=== PATIENT | female | born 1955 | race Caucasian/White ===

== ENCOUNTER 2019-08-28 09:52 | Outpatient (CLI) | payer OTHER, SELFPAY ==
--- NOTE | ~2019-08-28 | MM_ITS ---
EXAMINATION: MM screening kyleigh BI w talisha HISTORY: Screening mammogram TECHNIQUE: Craniocaudal and mediolateral oblique 3-D tomosynthesis images were obtained and synthetic 2-D images were generated. CAD analysis was submitted and interpreted. COMPARISON: 08/29/2018, 08/09/2017, 08/06/2016 bilateral digital screening mammogram examinations BREAST PARENCHYMAL COMPOSITION: There are scattered areas of fibroglandular density. FINDINGS: There is no evidence of suspicious mass, calcification, or architectural distortion to sugg est malignancy in either breast. There has been no suspicious interval change. IMPRESSION: 1. No mammographic evidence of malignancy. 2. Recommend routine screening mammography in one year. BI-RADS Category 1: Negative Reviewed, dictated and finalized at location A. [employer]
--- NOTE | ~2019-08-28 | DEXA_ITS ---
Bone Density Report Name: Janet Jha Age: 64 Sex: Female Ethnicity: White Date of : 1955 Indication: postmenopausal; height loss; asthma or emphysema; hysterectomy; Referring Provider: Cathie Slaughter Study: Bone densitometry was performed. Exam Date: August 28, 2019 Accession number: [id number] Bone Density: Region BMD T-score Z-score Classification AP Spine (L1-L4) 0.945 -0.9 0.8 Normal Femoral Neck (Left) 0.734 -1.0 0.4 Normal Total Hip (Left) 0.977 0.3 1.5 Normal Total Hip Bilateral Avg 0.960 0.2 1.4 Normal Femoral Neck (Right) 0.756 -0.8 0.6 Normal Total Hip (Right) 0.942 0.0 1.2 Normal World Health Organization criteria for BMD impression classify patients as: Normal (T-score at or above -1.0), Osteopenia (T-score between -1.0 and -2.5), or Osteoporosis (T-score at or below -2.5). 10-year Fracture Risk: FRAX not reported because: All T-scores for Spine Total, Hip Total, Femoral Neck at or above -1.0 Clinical Information Provided by Patient: Has used the following medications: Vitamin D Has the following medical conditions: Asthma or Emphysema, Hysterectomy Patient maximum height was 65 Menopause Age: 54 No regular weight bearing exercise Does not regularly consume dairy products Onset of menses at age 12 Number of children 1 Impression: The patient has normal bone mass. Discussion: BONE DENSITY IS ABOVE THE MINIMUM DESIRABLE LEVEL AT ALL SKELETAL SITES TESTED. This patient?s bone mineral density is above the minimum desirable level (T-score -1.0 or better) at all sites measured. The patient should follow a healthful lifestyle (good nutrition with adequate calcium and vitamin D, and appropriate weight-bearing exercise). Follow-Up: Consider repeating this study in 5 years or sooner if there is some new clinical indication. Reported by: JS on 08/28/2019 10:24:00 AM. Reviewed, dictated and finalized at location ASandy SNEED
== END 2019-08-28 09:53 | disposition home or self-care (01) ==
LOC: ANHIMG 09:53
PROVIDERS: PCP Internal Medicine; Visit Provider Nurse Practitioner
DX: Z78.0 Asymptomatic menopausal state (principal); Z12.31 Encounter for screening mammogram for malignant neoplasm of breast
CPT/HCPCS: 77063; 77067; 77080

== ENCOUNTER 2020-11-01 14:45 | Outpatient (CLI) | payer MEDICARE, MEDICAID, SELFPAY ==
--- NOTE | ~2020-11-01 | MM_ITS ---
EXAMINATION: MM screening kyleigh BI w talisha HISTORY: Screening mammogram, family history of breast cancer in her mother. TECHNIQUE: Craniocaudal and mediolateral oblique 3-D tomosynthesis images were obtained and synthetic 2-D images were generated. CAD analysis was submitted and interpreted. COMPARISON: 08/28/2019, 08/29/2018, 08/09/2017 BREAST PARENCHYMAL COMPOSITION: The breasts are heterogeneously dense, which may obscure small masses . FINDINGS: There is no evidence of suspicious mass, calcification, or architectural distortion to sugg est malignancy in either breast. There has been no suspicious interval change. IMPRESSION: 1. No mammographic evidence of malignancy. 2. Recommend routine screening mammography in one year. BI-RADS Category 1: Negative Reviewed, dictated and finalized at location A.
[2020-11-01 16:06] LABS: Alanine Aminotransferase 24 U/L (4-35); Albumin Level 4.5 g/dL (3.5-5.1); Alkaline Phosphatase 122 U/L (38-126); Anion Gap 6 mmol/L (8-16); Aspartate Amino Transferase 37 U/L (14-36); Bilirubin,Total 0.2 mg/dL (0.2-1.3); Blood Urea Nitrogen 19 mg/dL (7-17); Calcium 8.8 mg/dL (8.4-10.2); Carbon Dioxide 31 mmol/L (22-30); Chloride 101 mmol/L (98-107); Cholesterol 190 mg/dL (0-200); Estimated Glomerular Filt Rate > 60; Glucose 131 mg/dL (65-105); HDL Direct 38 mg/dL; Potassium 3.8 mmol/L (3.4-5.0); Sodium 138 mmol/L (137-145); Triglycerides 416 mg/dL (<150)
[2020-11-01 16:17] LABS: LDL Cholesterol Direct 65 mg/dL
== END 2020-11-01 14:46 | disposition home or self-care (01) ==
PROVIDERS: PCP Internal Medicine
DX: Z12.31 Encounter for screening mammogram for malignant neoplasm of breast (principal); E78.5 Hyperlipidemia, unspecified; Z79.899 Other long term (current) drug therapy
CPT/HCPCS: 36415; 77063; 77067; 80053; 80061; 82306

== ENCOUNTER → 2020-11-12 06:35 | Outpatient (CLI) | payer MEDICARE, MEDICAID, SELFPAY ==
[2020-11-12 19:16] LABS: SARS-CoV-2 RNA PCR Negative
== END ==
PROVIDERS: PCP Internal Medicine; Visit Provider Internal Medicine Gastroenterology
DX: Z01.812 Encounter for preprocedural laboratory examination (principal); Z20.822 Contact with and (suspected) exposure to COVID-19
CPT/HCPCS: C9803; U0003; U0005

== ENCOUNTER 2020-11-16 01:36 | Day surgery (SDC) | payer MEDICARE, MEDICAID, SELFPAY ==
[2020-11-08 08:48] VITALS: BMI 31.6
[2020-11-16 12:25] VITALS: BP 156/97; PULSE 89; RESP 16; TEMP 36.8; O2SAT 97; BMI 31.4
--- NOTE | 2020-11-16 12:31 | WPDANESEPPF ---
Anes - Initial Pre Proc Eval Procedure: Operation Date: 11/16/20 13:30 Proposed Procedures p Screening Colonoscopy - Deni Loco DO Date/Time: 11/16/20 12:31 Surgeon: Deni Loco DO Pre Op Diagnosis: hx of colon polyps Patient Data Age: 65 Gender: F Height: 5 ft 5 in Weight: 85.6 kg Last Vital Signs Temp 36.8 C 11/16/20 12:25 Pulse 89 11/16/20 12:25 Resp 16 11/16/20 12:25 BP 156/97 H 11/16/20 12:25 Pulse Ox 97 11/16/20 12:25 Allergies Allergy/AdvReac Type Severity Reaction Status Date / Time No Known Allergies Allergy Verified 11/16/20 12:24 Home Medications Medication Instructions Recorded Confirmed Type albuterol sulfate 90 mcg/actuation 1 puff INHALATION Q4H PRN #8.5 gm 01/05/20 11/08/20 Rx aerosol inhaler ergocalciferol (vitamin D2) 1,250 1,250 mcg PO WEEKLY #8 cap 02/08/20 11/08/20 Rx mcg (50,000 unit) capsule fluticasone 113 mcg-salmeterol 14 1 inh INHALATION BID #1 each 04/15/20 11/08/20 Rx mcg/actuation breath activated powdr triamterene 37.5 See Rx Instructions .ROUTE 04/15/20 11/08/20 Rx mg-hydrochlorothiazide 25 mg .COMPLEX #90 each capsule atorvastatin 10 mg tablet 10 mg PO DAILY #90 tablet 07/20/20 11/08/20 Rx oxybutynin chloride 5 mg tablet See Rx Instructions .ROUTE 07/20/20 11/08/20 Rx .COMPLEX #180 ea potassium chloride 10 mEq 10 meq PO DAILY #90 tablet 07/20/20 11/08/20 Rx tablet,extended release sertraline 100 mg tablet 100 mg PO DAILY #90 tablet 07/20/20 11/08/20 Rx sumatriptan succinate 100 mg tablet See Rx Instructions .ROUTE 07/20/20 11/08/20 Rx .COMPLEX #27 ea suvorexant 15 mg tablet 15 mg PO .QHS PRN #30 tablet 07/20/20 11/08/20 Rx Patient hx anesthesia problems: none Family hx anesthesia problems: none PMFSH Past Medical History Medical History Asthma Attention-deficit hyperactivity disorder, unspecified type Bipolar II disorder Essential (primary) hypertension Hyperlipidemia, unspecified Recurrent major depression Restless leg syndrome Surgical History Surgical History S/P JW-BSO Family History Family History Father Family history of alcoholism Family history of throat cancer Patient's father is Mother Family history of malignant neoplasm of breast in first degree relative Family history of malignant neoplasm of breast Social History Social History Smoking status: Former smoker Alcohol intake: never Substance use type: does not use Living arrangements: with family Gender identity (if verbalized by the patient): Female Spiritual care concerns: No Anes - Eval Final PreProcedure Day of Procedure 11/16/20 12:31 Patient weight: obese Heart: regular rate and rhythm Lungs: clear to auscultation Airway: Mallampati scale class II Neurological: alert and oriented Last oral intake: >/= 8 hours ASA classification: III Emergent: no Anesthetic plan: proceed Anesthesia type and monitoring: general GIVS and standard monitoring Informed Consent: The patient's anesthetic plan and its attendant risks and benefits were discussed with the patient/family/POA. Questions were solicited and answers provided to the satisfaction of the patient/family/POA.
[2020-11-16] MEDS: LACTATED RINGERS 1,000 ML 150 ML IV CONT (12:36)
--- NOTE | 2020-11-16 13:49 | WPDGICN ---
GI Consult Note Consult date/time: 11/16/20 13:49 HPI: Reason for visit is colonoscopy. This very pleasant lady seen in consultation request the primary physician. Impression: He a very pleasant lady with left lower quadrant abdominal pain. Evaluate for underlying inflammatory neoplastic disease. She has a history of hyperplastic colon polyps. HTN. HLD. Migraine cephalgia. Recommendation: Colonoscopy. History: This very pleasant lady has a history of left lower quadrant abdominal pain for the last 2 months. The pain is cramping and burning in nature. Would initially come and go but now is to more constant. It is unaffected by eating or defecation. Fever, chills, night sweats or weight loss tonight. She reports occasional diarrhea but denies any hematochezia, melena or acholic stools. She reports mucus per rectum. Pain is unrelieved by defecation. Nausea, vomiting he, hematemesis, dysphagia, odynophagia, indigestion or heartburn at night. She is here for colonoscopy to assess for lying inflammatory neoplastic disease. Previous colonoscopy has revealed hyperplastic colon polyps. Physical examination: General: very pleasant patient in no acute distress. HEENT: Head was normocephalic sclerae is clear mouth without masses neck was supple. Heart: Rate rhythm regular without S3 or S4. Lungs: CTA. Abdomen: Soft with no guarding or rigidity. Bowel sounds were active. Neurologic: Cranial nerves 2 through 12 intact. No focal defects. No clonus. Musculoskeletal system: Revealed no joint tenderness or swelling no muscle atrophy. Extremities: Reveal no significant edema. Skin: Warm and dry with normal turgor. Mental status: intact. Patient is alert and oriented. Review of Systems Review of Systems: All systems reviewed & are unremarkable except as noted in HPI and below PMFSH Past Medical History Medical History Asthma Attention-deficit hyperactivity disorder, unspecified type Bipolar II disorder Essential (primary) hypertension Hyperlipidemia, unspecified Recurrent major depression Restless leg syndrome Surgical History Surgical History S/P JW-BSO Family History Family History Father Family history of alcoholism Family history of throat cancer Patient's father is Mother Family history of malignant neoplasm of breast in first degree relative Family history of malignant neoplasm of breast Social History Social History Smoking status: Former smoker Alcohol intake: never Substance use type: does not use Living arrangements: with family Gender identity (if verbalized by the patient): Female Spiritual care concerns: No Meds Home Medications and Allergies Home Medications Medication Instructions Recorded Confirmed Type albuterol sulfate 90 mcg/actuation 1 puff INHALATION Q4H PRN #8.5 gm 01/05/20 11/08/20 Rx aerosol inhaler ergocalciferol (vitamin D2) 1,250 1,250 mcg PO WEEKLY #8 cap 02/08/20 11/08/20 Rx mcg (50,000 unit) capsule fluticasone 113 mcg-salmeterol 14 1 inh INHALATION BID #1 each 04/15/20 11/08/20 Rx mcg/actuation breath activated powdr triamterene 37.5 See Rx Instructions .ROUTE 04/15/20 11/08/20 Rx mg-hydrochlorothiazide 25 mg .COMPLEX #90 each capsule atorvastatin 10 mg tablet 10 mg PO DAILY #90 tablet 07/20/20 11/08/20 Rx oxybutynin chloride 5 mg tablet See Rx Instructions .ROUTE 07/20/20 11/08/20 Rx .COMPLEX #180 ea potassium chloride 10 mEq 10 meq PO DAILY #90 tablet 07/20/20 11/08/20 Rx tablet,extended release sertraline 100 mg tablet 100 mg PO DAILY #90 tablet 07/20/20 11/08/20 Rx sumatriptan succinate 100 mg tablet See Rx Instructions .ROUTE 07/20/20 11/08/20 Rx .COMPLEX #27
[2020-11-16 14:22] VITALS: BP 144/74; PULSE 68; RESP 24; O2SAT 99
[2020-11-16 14:32] VITALS: BP 133/98; PULSE 71; RESP 22; O2SAT 98
[2020-11-16 14:42] VITALS: BP 144/88; PULSE 70; RESP 20; O2SAT 98
== END 2020-11-16 14:55 | disposition home or self-care (01) ==
PROVIDERS: PCP Internal Medicine; Visit Provider Internal Medicine Gastroenterology
PROC: 0DJD8ZZ Inspection of Lower Intestinal Tract, Via Natural or Artificial Opening Endoscopic (ICD-10-PCS; CPT 45378; principal; 2020-11-16 13:30)
DX: R10.32 Left lower quadrant pain (principal); K64.8 Other hemorrhoids; Z86.010 Personal history of colon polyps; I10 Essential (primary) hypertension; E78.5 Hyperlipidemia, unspecified; F90.9 Attention-deficit hyperactivity disorder, unspecified type; F31.9 Bipolar disorder, unspecified; G25.81 Restless legs syndrome; Z87.891 Personal history of nicotine dependence; Z79.51 Long term (current) use of inhaled steroids
CPT/HCPCS: 45378; J2001; J2704; J7120

== ENCOUNTER 2020-11-30 16:40 | Emergency (ER) | payer MEDICARE, MEDICAID, SELFPAY ==
[2020-11-30] VITALS (18 sets, daily range): BP systolic 146–182; BP diastolic 71–98; PULSE 76–91; RESP 10–21; TEMP 36.8–36.9; O2SAT 95–99
--- NOTE | ~2020-11-30 | CT_ITS ---
EXAMINATION: CT abdomen pelvis w con INDICATION: Left lower quadrant pain TECHNIQUE: Computed tomographic images of the abdomen and pelvis were obtained after the administrati on of 100 cc of Omnipaque 350 intravenous contrast. The dose-length product (DLP) was 801.20 mGy-cm. Automated exposure control and iterative reconstruction technique were employed. COMPARISON: None available FINDINGS: Minimal dependent atelectasis is present in the lung bases. The heart size is normal. The l iver, spleen, pancreas, gallbladder, and adrenal glands are normal. Cysts of the kidneys measure up t o 2.1 cm on the right. No pathologically enlarged abdominal or pelvic lymph nodes are identified. The re is no free intraperitoneal gas or evidence of bowel obstruction. The appendix is normal. There is a tiny fat-containing umbilical hernia. Mild lumbar spondylosis is noted. IMPRESSION: 1. No CT correlate for the patient's symptoms. Reviewed, dictated and finalized at location A.
--- NOTE | ~2020-11-30 | XR_ITS ---
EXAMINATION: XR chest 1V portable INDICATION: Sternal chest pain and chest tightness, shortness of breath TECHNIQUE: Portable AP chest at 1703 hours COMPARISON: 11/27/2018 FINDINGS: There are minimal opacities of the lung bases. There is no pleural effusion or pneumothorax . The cardiomediastinal silhouette is normal. IMPRESSION: 1. Minimal bibasilar airspace opacities, likely atelectasis. Reviewed, dictated and finalized at location A.
--- NOTE | 2020-11-30 16:54 | ECG_ITS ---
Measurements Intervals [place] Rate: 87 P: 40 DE: 162 QRS: -12 QRSD: 93 T: 10 QT: 362 QTc: 437 Interpretive Statements SINUS RHYTHM LOW QRS VOLTAGE IN PRECORDIAL LEADS VOLTAGE CRITERIA FOR LVH BORDERLINE ST-T WAVE ABNORMALITY- DIFFUSE LEADS BASELINE ARTIFACT- II, III, AVF BORDERLINE ECG Electronically Signed On 11-30-2020 19:58:54 CDT by Too Sam D.O.
--- NOTE | 2020-11-30 16:55 | ED.CHESTPAIN ---
HPI - Chest Pain General Chief Complaint: Chest Pain Stated Complaint: chest pain Time Seen by Provider: 11/30/20 16:42 Source: RN notes reviewed History of Present Illness HPI narrative: Patient presents to emergency department from home for chest pain. Patient states she is having bilateral anterior chest pain for the past 1 week. states the pain has been constant and never resides. Patient notes occasional radiation into the back states is associated with a feeling shortness of breath also notes some abdominal pain she denies any fevers or chills vomiting diarrhea or any other symptoms states she took no pain medication for the symptoms today pain is described as a pressure across the chest patient states that she has been having issues with left lower quadrant pain for several months and has a history of her left ovary being removed. She states she is had a colonoscopy and a [employer] exam that were both normal and is scheduled to get a CT scan of abdomen pelvis Related Data Home Medications Medication Instructions Recorded Confirmed dicyclomine mg 11/30/20 Allergies Allergy/AdvReac Type Severity Reaction Status Date / Time No Known Allergies Allergy Verified 11/30/20 16:59 Review of Systems Review of Systems: Narrative: Gen.: Denies fevers or chills Eyes: Denies eye pain or visual change ENT: Denies congestion Respiratory: Reports shortness of breath denies cough CV: See HPI GI: Reports abdominal pain. Denies nausea vomiting or diarrhea denies burning, urgency, frequency or hematuria Musculoskeletal: Denies back pain or muscle pain Neuro: Denies numbness, tingling, weakness or focal weakness Skin: Denies rash Except as documented, all other systems reviewed and negative PMFSH Past Medical History Medical History Asthma Attention-deficit hyperactivity disorder, unspecified type Bipolar II disorder Essential (primary) hypertension Hyperlipidemia, unspecified Recurrent major depression Restless leg syndrome Surgical History Surgical History S/P JW-BSO Family History Family History Father Family history of alcoholism Family history of throat cancer Patient's father is Mother Family history of malignant neoplasm of breast in first degree relative Family history of malignant neoplasm of breast Social History Social History Smoking status: Former smoker Alcohol intake: never Substance use type: does not use Gender identity (if verbalized by the patient): Female Spiritual care concerns: No Exam Narrative: Exam Narrative: APPEARANCE: No acute distress, nontoxic, resting in bed HEENT: Normocephalic, atraumatic, OMM RESPIRATORY: No respiratory distress, clear to auscultation bilaterally with no rhonchi wheezing or rales CARDIOVASCULAR: RRR s murmur ABDOMINAL: Soft nondistended, tender to palpation in left upper quadrant and epigastric region and left lower quadrant no tenderness tenderness in right upper quadrant and right lower quadrant rebound or guarding Extremity: Moves all extremities, no clubbing cyanosis or edema extremity NEURO: Awake and alert. Following commands, speech normal, no focal deficits SKIN:: Warm, dry. Normal Color PSYCHIATRIC: Normal affect/mood Course Course Emergency Course: Patient notes some improvement of pain with Toradol and resolution of pain with GI cocktail Patient's abdomen is soft without significant pain or signs of surgical abdomen on serial exams. Lab and x-ray evaluations are reviewed and patient is felt to be a reasonable candidate for outpatient management. Patient was instructed as to limitations of x-ray and laboratory evaluation and encouraged to return to ED or primary physician for repeat exam in 12 hours if continued
[2020-11-30 17:16] LABS: Basophils Percent Auto 0.2 % (0.2-1.2); Eosinophils Absolute Auto 0.1 K/mm3 (0-0.3); Eosinophils Percent Auto 0.8 % (0-4.4); Hematocrit 35.3 % (37.0-47.0); Hemoglobin 12.1 g/dL (12.0-15.0); Immature Granulocyte Absolute 0.04 K/mm3 (0.00-0.031); Immature Granulocyte Percent A 0.4 % (0-0.5); Lymphocytes Percent Auto 28.7 % (18.3-44.2); Mean Corpuscular HGB Conc 34.3 g/dl (32-36); Mean Corpuscular Hemoglobin 29.7 pg (26-34); Mean Corpuscular Volume 86.7 fl (80-100); Mean Platelet Volume 9.9 fl (7.4-10.4); Monocytes Absolute Auto 0.6 K/mm3 (0.1-0.6); Monocytes Percent Auto 5.7 % (2.6-8.5); Neutrophils Absolute Auto 6.5 K/mm3 (1.3-6.7); Neutrophils Percent Auto 64.2 % (45.5-73.1); Platelet Count Result 233 k/mm3 (150-375); Red Blood Count 4.07 M/mm3 (4.2-5.4); Red Cell Distribution Width 13.2 % (11.5-14.5); White Blood Count 10.1 K/mm3 (4.5-10.0)
[2020-11-30 17:30] LABS: INR 0.9; Prothrombin Time 13.2 Seconds (11.1-14.7)
[2020-11-30 17:31] LABS: Partial Thromboplastin Time 29.7 SECONDS (22.3-36.8)
[2020-11-30 17:32] LABS: Albumin Level 4.2 g/dL (3.5-5.1); Alkaline Phosphatase 125 U/L (38-126); Aspartate Amino Transferase 58 U/L (14-36); Bilirubin,Total 0.4 mg/dL (0.2-1.3); Lipase 43 U/L (23-300)
[2020-11-30 17:38] LABS: Troponin I < 0.012 ng/mL (0.000-0.034)
[2020-11-30 17:51] LABS: Alanine Aminotransferase 27 U/L (4-35)
[2020-11-30] MEDS: KETOROLAC 30 MG/ML VIAL (*BKC) IV PUSH (17:56)
[2020-11-30 18:21] LABS: D Dimer 0.27 ug/mL (<0.48)
[2020-11-30 18:48] LABS: Estimated CRCL calculation 65 ml/min; Estimated Glomerular Filt Rate > 60
[2020-11-30 20:33] LABS: Troponin I < 0.012 ng/mL (0.000-0.034)
[2020-11-30] MEDS: FAMOTIDINE 20 MG/2 ML VIAL IV PUSH (21:50)
== END 2020-11-30 21:55 | disposition home or self-care (01) ==
PROVIDERS: Emergency Provider Emergency Medicine; PCP Internal Medicine
DX: K21.9 Gastro-esophageal reflux disease without esophagitis (principal); R07.9 Chest pain, unspecified; R10.13 Epigastric pain; R10.12 Left upper quadrant pain; Z87.891 Personal history of nicotine dependence
CPT/HCPCS: 36415; 71045; 74177; 80076; 83690; 84484; 85025; 85380; 85610; 85730; 93005; 96374; 96375; 99284; A9270; J1885; Q9967

== ENCOUNTER 2020-12-09 06:54 | Outpatient (CLI) | payer MEDICARE, MEDICAID, SELFPAY ==
--- NOTE | ~2020-12-09 | CT_ITS ---
EXAMINATION: CT abdomen pelvis w con DATE: 12/09/2020 07:41 INDICATION: Left lower quadrant abdominal pain. TECHNIQUE: Computed tomography (CT) of the abdomen and pelvis was performed with 100 mL Omnipaque 350 intravenous contrast. Automated exposure control and iterative reconstruction technique were employe d. The dose-length product was 1122.60 mGy-cm. COMPARISON: CT abdomen and pelvis 11/30/2020 FINDINGS: The visualized portions of the lung bases demonstrate minimal atelectasis. No pleural effus ion. The heart size is normal. No pericardial effusion. The liver, gallbladder, spleen, pancreas, and adrenal glands are normal. There are cysts in the kidneys measuring up to 2.1 cm on the right. There is diverticulosis of the colon without evidence of diverticulitis. There are no dilated loops of bow el. The appendix is normal. There are no pathologically enlarged lymph nodes. There is no free intrap eritoneal fluid. There are chronic bilateral L5 pars defects without spondylolisthesis. There is mild lumbar spondylosis. IMPRESSION: 1. No etiology for the patient's symptoms. Reviewed, dictated and finalized at location A.
== END 2020-12-09 06:55 | disposition home or self-care (01) ==
PROVIDERS: PCP Internal Medicine; Visit Provider Physician Assistant Medical
DX: R10.32 Left lower quadrant pain (principal)
CPT/HCPCS: 74177; Q9967

== ENCOUNTER 2021-02-09 10:37 | Emergency (ER) | payer MEDICARE, MEDICAID, SELFPAY ==
--- NOTE | ~2021-02-09 | XR_ITS ---
XR shoulder RT min 2V, XR humerus RT 02/09/2021 11:29 (accession [id number]), 02/09/2021 11:30 (accession [id number]) Indication: Right shoulder pain after trauma Procedure: 2 views right shoulder and 2 views right humerus Comparison: No prior studies for comparison. Findings: There is a comminuted displaced right humeral neck fracture with valgus angulation. Glenohu meral joint intact. Surrounding osseous structures within normal limits. No significant soft tissue a bnormality. Impression: 1: Comminuted mildly displaced right humeral neck fracture with valgus angulation. Reviewed, dictated and finalized at location A. Impression: 1: Comminuted mildly displaced right humeral neck fracture with valgus angulati on. Impression: 1: Comminuted mildly displaced right humeral neck fracture with valgus angulati on.
[2021-02-09 10:47] VITALS: BP 164/85; PULSE 89; RESP 18; TEMP 36.7; O2SAT 98
--- NOTE | 2021-02-09 11:02 | ED.UPPEXIN ---
HPI - Extremity Injury (Upper) General Chief Complaint: Extremity Injury, Upper Stated Complaint: right arm injury Time Seen by Provider: 02/09/21 11:30 Source: patient and RN notes reviewed Mode of arrival: ambulatory Limitations: no limitations History of Present Illness HPI narrative: 65-year-old female presents with concern for right arm injury. Reports on Saturday she slipped and fell on her hardwood floor at home. Reports since then she has had shoulder and upper arm pain. She reports she has been guarding the shoulder, holding it close to her torso, has been unable to change her shirt due to the pain in her arm. She reports she has been taking ibuprofen several times daily with little relief. She denies any decreased sensation or strength in her distal arm. MD complaint: injury to: right, shoulder and arm Related Data Allergies Allergy/AdvReac Type Severity Reaction Status Date / Time No Known Allergies Allergy Verified 01/19/21 13:40 Review of Systems Review of Systems: CONSTITUTIONAL: Denies malaise, chills, sweats, or fever. CARDIOVASCULAR: Denies chest pain, palpitations, or edema. RESPIRATORY: Denies cough or dyspnea. SKIN: Lacerations, abrasions, bruising, redness MUSCULOSKELETAL: Reports right shoulder pain. NEUROLOGIC: Denies numbness, weakness. All systems reviewed & are unremarkable except as noted in HPI and below PMFSH Past Medical History Medical History Asthma Attention-deficit hyperactivity disorder, unspecified type Bipolar II disorder Essential (primary) hypertension Hyperlipidemia, unspecified Recurrent major depression Restless leg syndrome Surgical History Surgical History S/P JW-BSO Family History Family History Father Family history of alcoholism Family history of throat cancer Patient's father is Mother Family history of malignant neoplasm of breast in first degree relative Family history of malignant neoplasm of breast Social History Social History (Updated 01/19/21 @ 13:44 by Paris Orozco MA) Smoking packs per day: 0.15 Smoking cigarettes per day: 3.0 Years smoked: 2 Smoking pack-years: 0.30 Smoking status: Former smoker Alcohol intake: never Substance use type: does not use Gender identity (if verbalized by the patient): Female Spiritual care concerns: No Comments At time of signature, agree with nursing past medical, surgical, social and family history. There is no relevant family history pertinent to the presenting complaint Exam Narrative: GENERAL: Well-appearing, well-nourished, and in no acute distress. HEAD: Normocephalic, atraumatic. EYES: PERRLA, conjunctivae clear NECK: Supple. CHEST: Speaks in full sentences. No respiratory distress. HEART: Regular rate and rhythm. Normal and equal peripheral pulses. EXTREMITIES: Right shoulder, upper arm have normal sensation, limited range of motion. No edema or ecchymosis. Normal sensation with sensitivity to light touch and pain. Proximal humeral tenderness. No open wounds, no skin tenting, no devitalized tissue or atrophy, no trophic changes, no obvious deformity, alignment normal, nearby joints and structures intact. Distal pulses palpable and equal bilaterally, skin warm, dry, pink. Capillary refill less than 3 seconds. SKIN: Warm, dry, no rash. NEURO: Alert and oriented x3. PSYCH: Normal mood and affect Course Course Emergency Course: Patient is aware of diagnosis, understands and agrees to treatment plan. Anticipatory guidance given. Patient agrees to follow-up as directed and is aware of reasons to seek care at the emergency department. Portions of this record may have been created with voice recognition software Vital Signs Vital signs: Vital Signs Temperature 98.1 F 02/09/21 10:47 Pulse Rate 89
[2021-02-09] MEDS: KETOROLAC (*BKC) 60 MG/2 ML VIAL IM (11:42)
== END 2021-02-09 12:07 | disposition home or self-care (01) ==
PROVIDERS: Emergency Provider Nurse Practitioner; PCP Internal Medicine
DX: S42.211A Unspecified displaced fracture of surgical neck of right humerus, initial encounter for closed fracture (principal); W01.0XXA Fall on same level from slipping, tripping and stumbling without subsequent striking against object, initial encounter; J45.909 Unspecified asthma, uncomplicated; I10 Essential (primary) hypertension; E78.5 Hyperlipidemia, unspecified; G25.81 Restless legs syndrome; F33.9 Major depressive disorder, recurrent, unspecified
CPT/HCPCS: 73030; 73060; 96372; 99214; A4565; G0463; J1885

== ENCOUNTER 2021-03-13 16:41 | Outpatient (CLI) | payer MEDICARE, MEDICAID, SELFPAY ==
[2021-03-13 18:15] LABS: Vitamin D 25 Hydroxy 31.8 ng/mL
== END 2021-03-13 16:42 | disposition home or self-care (01) ==
PROVIDERS: PCP Internal Medicine; Visit Provider Orthopaedic Surgery
DX: E55.9 Vitamin D deficiency, unspecified (principal)
CPT/HCPCS: 36415; 82306

== ENCOUNTER 2022-01-26 14:34 | Outpatient (CLI) | payer MEDICARE, MEDICAID, SELFPAY ==
--- NOTE | ~2022-01-26 | DEXA_ITS ---
Bone Density Report Name: GABE MCDANIELS Age: 66 Sex: Female Ethnicity: White Date of : 1955 Indication: postmenopausal; screening for osteoporosis; height loss; hysterectomy; Referring Provider: IAM ROMERO Study: Bone densitometry was performed. Exam Date: January 26, 2022 Accession number: [id number] Bone Density: Region BMD T-score Z-score Classification AP Spine(L1-L4) 1.005 -0.4 1.5 Normal Femoral Neck (Left) 0.737 -1.0 0.6 Normal Total Hip (Left) 0.930 -0.1 1.2 Normal Femoral Neck (Right) 0.765 -0.8 0.8 Normal Total Hip (Right) 0.973 0.3 1.6 Normal Total Hip Mean 0.951 0.1 1.4 Normal World Health Organization criteria for BMD impression classify patients as: Normal (T-score at or above -1.0), Osteopenia (T-score between -1.0 and -2.5), or Osteoporosis (T-score at or below -2.5). 10-year Fracture Risk: FRAX not reported because: All T-scores for Spine Total, Hip Total, Femoral Neck at or above -1.0 Clinical Information Provided by Patient: Has used the following medications: Vitamin D, Calcium Has the following medical conditions: Hysterectomy Patient maximum height was 65 Menopause Age: 54 Onset of menses at age 11 Number of children 1 Impression: UNAPPROVED The patient has normal bone mass. Discussion: UNAPPROVED BONE DENSITY IS ABOVE THE MINIMUM DESIRABLE LEVEL AT ALL SKELETAL SITES TESTED. This patient?s bone mineral density is above the minimum desirable level (T-score -1.0 or better) at all sites measured. The patient should follow a healthful lifestyle (good nutrition with adequate calcium and vitamin D, and appropriate weight-bearing exercise). Follow-Up: UNAPPROVED Consider repeating this study in 5 years or sooner if there is some new clinical indication. Reported by: DORINDA on 01/26/2022 3:02:00 PM. Reviewed, dictated and finalized at location ASandy SNEED
--- NOTE | ~2022-01-26 | MM_ITS ---
EXAMINATION: MM screening kyleigh BI w talisha HISTORY: Screening mammogram, family history of breast cancer in her mother. TECHNIQUE: Craniocaudal and mediolateral oblique 3-D tomosynthesis images were obtained and synthetic 2-D images were generated. CAD analysis was submitted and interpreted. COMPARISON: 11/01/2020, 08/28/2019, 08/29/2018 BREAST PARENCHYMAL COMPOSITION: The breasts are heterogeneously dense, which may obscure small masses . FINDINGS: There is no suspicious mass, calcification, or architectural distortion to suggest malignan cy in either breast. There has been no suspicious interval change. IMPRESSION: 1. No mammographic evidence of malignancy. 2. Recommend routine screening mammography in one year. BI-RADS Category 1: Negative Reviewed, dictated and finalized at location A.
== END 2022-01-26 14:35 | disposition home or self-care (01) ==
PROVIDERS: PCP Orthopaedic Surgery
DX: Z12.31 Encounter for screening mammogram for malignant neoplasm of breast (principal); Z78.0 Asymptomatic menopausal state
CPT/HCPCS: 77063; 77067; 77080

== ENCOUNTER 2023-09-03 15:53 | Emergency (ER) | payer MEDICARE, MEDICAID, SELFPAY ==
--- NOTE | ~2023-09-03 | XR_ITS ---
EXAMINATION: XR chest 2V DATE: 09/03/2023 16:56 INDICATION: Cough. Right lung crackles. TECHNIQUE: Frontal and lateral views of the chest were obtained. COMPARISON: Chest single view 11/30/2020, CT abdomen and pelvis 12/09/2020 FINDINGS: There is mild atelectasis at left lung base. No pleural effusion or pneumothorax. The heart size is normal. IMPRESSION: 1. Mild atelectasis at left lung base. Reviewed, dictated and finalized at location E. 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
[2023-09-03 16:18] VITALS: BP 187/88; BP 189/101; PULSE 90; RESP 20; TEMP 36.9; O2SAT 100
--- NOTE | 2023-09-03 18:04 | ED.URI ---
HPI - URI/Sore Throat General Chief Complaint: Upper Respiratory Infection Stated Complaint: can't breathe/chest tight Time Seen by Provider: 09/03/23 18:04 Source: patient, RN notes reviewed and old records reviewed Mode of arrival: ambulatory Limitations: no limitations History of Present Illness HPI Narrative: 68 year old female who presents to [facility] care with complaints of cough, shortness of breath and some upper chest heaviness. Patient reports that she has had cough since June, reports that she has asthma. Patient called her physician in [facility] and he prescribed Augmentin for her but she hasn't taken any doses says it makes her sick. Patient report that she took some DayQuil 2 days ago. Patient denies any fevers chills or sweats or any body aches. MD elicited complaint: cough and other (shortness of breath, upper chest heaviness) Pertinent past history: asthma Onset (ago): day(s) (cough 3 months, chest heaviness few days) Pain scale (0-10): 8 Able to tolerate fluids by mouth: Yes Exacerbating factors: exertion Treatments prior to arrival: other (DayQuil 2 days ago) Related Data Home Medications Medication Instructions Recorded Confirmed omeprazole 40 mg capsule,delayed 40 mg PO DAILY 02/06/22 09/03/23 release alprazolam 0.25 mg tablet 0.25 mg PO DAILY 09/03/23 09/03/23 gabapentin 100 mg capsule 100 mg PO TID 09/03/23 09/03/23 naproxen 500 mg tablet 500 mg PO BID 09/03/23 09/03/23 potassium chloride 20 mEq 20 meq PO DAILY 09/03/23 09/03/23 tablet,extended release(part/cryst) pravastatin 10 mg tablet 10 mg PO DAILY 09/03/23 09/03/23 semaglutide 0.25 mg or 0.5 mg (2 0.5 mg subcut WEEKLY 09/03/23 09/03/23 mg/3 mL) subcutaneous pen injector (Ozempic) sertraline 50 mg tablet 50 mg PO DAILY 09/03/23 09/03/23 triamterene 37.5 1 cap PO DAILY 09/03/23 09/03/23 mg-hydrochlorothiazide 25 mg capsule Allergies Allergy/AdvReac Type Severity Reaction Status Date / Time No Known Allergies Allergy Verified 09/03/23 16:49 Review of Systems Review of Systems: CONSTITUTIONAL: Denies malaise, chills, sweats, or fever. EYES: Denies visual changes, redness, or discharge. ENT: Reports rhinorrhea, congestion, no sinus pain,no otalgia and no sore throat. CARDIOVASCULAR: Denies chest pain, palpitations, or edema.states upper chest heaviness RESPIRATORY: Reports cough.? Reports some dyspnea. GASTROINTESTINAL: Denies abdominal pain, nausea, vomiting, diarrhea SKIN: Denies rash or itching. MUSCULOSKELETAL: Denies myalgia. NEUROLOGIC: Denies headache. All systems reviewed & are unremarkable except as noted in HPI and below PMFSH Past Medical History Medical History Asthma Attention-deficit hyperactivity disorder, unspecified type Bipolar II disorder Essential (primary) hypertension Hyperlipidemia, unspecified Recurrent major depression Restless leg syndrome Surgical History Surgical History S/P JW-[id number] Family History Family History Father Family history of alcoholism Family history of throat cancer Patient's father is Mother Family history of malignant neoplasm of breast in first degree relative Family history of malignant neoplasm of breast Social History Social History (Updated 09/05/23 @ 12:35 by Bre Guzman NP) Smoking packs per day: 0.15 Smoking cigarettes per day: 3.0 Years smoked: 2 Smoking pack-years: 0.30 Smoking status: Former smoker Second hand tobacco smoke exposure: Yes Smoking end date: 07/15/75 Alcohol intake: never Substance use type: does not use Living arrangements: with family Gender identity (if verbalized by the patient): Female Spiritual care concerns: No Comments At time of signature, agree with nursing past medical, surgical, social and family hi
== END 2023-09-03 18:25 | disposition home or self-care (01) ==
PROVIDERS: Emergency Provider Registered Nurse
DX: J06.9 Acute upper respiratory infection, unspecified (principal); R05.1 Acute cough; Z87.891 Personal history of nicotine dependence; J45.909 Unspecified asthma, uncomplicated; I10 Essential (primary) hypertension; E78.5 Hyperlipidemia, unspecified; G25.81 Restless legs syndrome
CPT/HCPCS: 71046; 99213; G0463

== ENCOUNTER 2025-07-02 14:03 | Outpatient (CLI) | payer MEDICARE, MEDICAID, SELFPAY ==
--- NOTE | ~2025-07-02 | MM_ITS ---
EXAMINATION: MM screening kyleigh BI w talisha HISTORY: Screening TECHNIQUE: Craniocaudal and mediolateral oblique 3-D tomosynthesis images were obtained and synthetic 2-D images were generated. CAD analysis was submitted and interpreted. COMPARISON: Comparison to multiple prior studies sequentially, with oldest reviewed study dated , 08/09/2017 BREAST PARENCHYMAL COMPOSITION: Dense: The breasts are heterogeneously dense, which may obscure small masses. FINDINGS: There is no evidence of suspicious mass, calcification, or architectural distortion to suggest malignancy in either breast. IMPRESSION: 1. No mammographic evidence of malignancy. 2. Recommend routine screening mammography in one year. BI-RADS Category 1: Negative Reviewed, dictated and finalized at location A. EN SETTLING TENDER
--- OUTSIDE RECORDS SUMMARY | 2025-07-02 14:08 | XMS_ITS | Patient Health Record ---
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 Name Role Phone Nisha Henley APRN Primary Care Provider [employer], [facility] Unavailable U navailable Allergies Allergen (clinical drug ingredient) Drug/Non Drug Allergy documented on EMR Reaction Allergy Type Onset Date Status Sertraline HCl muscle cramps Drug Allergy Active Reason For Referral No Information Medications Medication SIG (Take, Route, Frequency, Duration) Notes Start Date End Date Diagnosis (ICD Code) Status busPIRone HCl 15 MG Tablet 1 tablet Orally three times daily; Duration: 30 days 10/18/2016 Anxiety (ICD_1 0 - F41.9) Active Social History Sex Observation Social History Observation Description Sex Observation Female Social History Primary Social History Social Info Question Answer Notes Living Arrangement Living Arrangement: Independent Hilda ing Is this a supportive environment? Yes Tobacco Use - do not use Tobacco Use: Never Employment Status Employment Status: Unemployed Illicit Substance Usage Illicit Substance Usage: No Alcohol Use Alcohol Use Frequency: Never Problems Problem Type SNOMED Code ICD Code Dates Problem Status W/U Status Risk Notes Problem Anxiety (51384007) Anxiety (F41.9) Added On:10/19/19 17 Active confirmed Problem Obese class I (finding) (101178044818 107) Obesity (BMI 30.0-34.9) (E66.9) Added On:10/19/19 17 Active confirmed Plan Of Treatment No Information Insurance Providers Payer Name Payer Address Payer Phone Subscriber Number Group Number Insured Name Patient Relationship to Insured Coverage Start Date Coverage End Date [facility] Attn Claims Department [address] [place] [address] [phone] [id number] Janet Jha Self - patient is the insured 6 Medical (General) History Medical History History ICD Code Obesity Anxiety Surgical History Surgery Date(Month/Year) hysterectomy 2011
--- OUTSIDE RECORDS SUMMARY | 2025-07-02 14:08 | XMS_ITS | Clinical Summary ---
Author Organization [address] Address [facility] [place] [address] Care Team Providers Care Cryptographic Vulnerability Analyst Name Role Phone Sj Seymour MD Primary Care Provider [phone] Taye Burns MD Unavailable [phone] Allergies Active Allergy Reactions Criticality Noted Date Comments Hydroxyzine Dizziness Low 05/01/2022 Rosuvastatin Muscle pain Medium 05/01/2022 Atorvastatin Muscle pain Medium 05/01/2022 Sertraline Hcl Muscle pain Medium 01/06/2025 Ptezwaj-Lwe-Tnm Reductase Inhibitors Muscle pain Medium 05/11/2021 Medications fluticasone propionate (FLONASE) 50 mcg/actuation nasal spray Administer 1 spray into each nostril daily as needed for allergies 01/28/20 23 Active lancets miscIndications:C ontrolled type 2 diabetes mellitus without complication, without long-term current use of insulin Use as directed to test blood sugar daily before breakfast. 100 each 11 10/06/19 25 Active blood glucose diagnostic (glucose blood) stripIndications: Controlled type 2 diabetes mellitus without complication, without long-term current use of insulin Test blood sugar every day before breakfast. May also test 2 hours after largest meal as directed. 100 each 10/06/19 25 Active blood-glucose meter miscIndications:C ontrolled type 2 diabetes mellitus without complication, without long-term current use of insulin Use daily or as directed for monitoring of diabetes. 1 each 10/06/19 25 Active pen needle, diabetic 31 gauge x 3/16 needleIndications :Type 2 diabetes mellitus with stage 2 chronic kidney disease, without long-term current use of insulin ([facility]) Use to inject Ozempic once weekly. 30 each 1 11/20/19 25 Active ezetimibe (ZETIA) 10 mg tablet Take 1 tablet (10 mg total) by mouth every morning Active linaCLOtide (LINZESS) 145 mcg capsule Take 1 capsule (145 mcg total) by mouth every morning Active fluticasone furoate-vilantero L (BREO ELLIPTA) 100-25 mcg/dose diskus inhaler Inhale 1 puff nightly Rinse mouth with water after use. Do not swallow. Active cyanocobalamin (Vitamin B-12) 500 mcg tabletIndications :Prevention of Vitamin B12 Deficiency Take 1 tablet (500 mcg total) by mouth every morning Unsure of dose Active HYDROcodone-aceta minophen (NORCO) 5-325 mg per tabletIndications :Pain Take 1-2 tablets by mouth every 4 (four) hours as needed for pain 30 tablet 12/19/19 25 Active albuterol HFA (PROVENTIL HFA,VENTOLIN HFA,PROAIR HFA) 90 mcg/actuation inhaler Inhale 2 puffs every 6 (six) hours as needed for wheezing 1 each 03/09/20 25 Active clopidogreL (PLAVIX) 75 mg tablet Take 1 tablet (75 mg total) by mouth daily 30 tablet 03/19/20 25 2025 Active aspirin 81 mg enteric coated tablet Take 1 tablet (81 mg total) by mouth daily 30 tablet 11 03/19/20 25 2025 Active losartan (COZAAR) 25 mg tablet TAKE 1 TABLET(25 MG) BY MOUTH DAILY 100 tablet 04/04/20 25 Active nortriptyline (PAMELOR) 25 mg capsule Take 1 capsule (25 mg total) by mouth daily 04/11/20 25 Active alirocumab 75 mg/mL pen injector Inject 1 Pen under the skin every 14 (fourteen) days 1 mL 3 04/21/20 25 2025 Active potassium chloride ER (KLOR-CON) 10 mEq CR tabletIndications :Hypertension associated with diabetes (HCC),Hypokalemia Take 2 tablet/capsul e (20 mEq total) by mouth 2 (two) times a day 180 tablet 4 04/26/20 25 2025 Active sertraline (ZOLOFT) 50 mg tabletIndications :Generalized anxiety disorder with panic attacks Take 1 tablet (50 mg total) by mouth daily 90 tablet 4 04/26/20 25 2025 Active ALPRAZolam (XANAX) 0.25 mg tabletIndications :Generalized anxiety disorder with panic attacks Take 1 tablet (0.25 mg total) by mouth daily as needed for anxiety 90 tablet 04/26/20 Active ondansetron ODT (ZOFRAN-ODT) 4 mg disintegrating tabletIndications :Type 2 diabetes mellitus with stage 2 chronic kidney disease, without long-term current use of insulin (HCC),Calculus of gallbladder without cholecystitis without obstruction DISSOLVE 1 TABLET(4 MG) ON THE TONGUE EVERY 8 HOURS NEEDED FOR NAUSEA OR VOMITING 20 tablet 11 05/12/20 Active omeprazole (PriLOSEC) 40 mg capsule TAKE 1 CAPSULE(40 MG) BY MOUTH DAILY 90 capsule 1 05/12/20 Active semaglutide (Ozempic) 0.25 mg or 0.5 mg (2 mg/3 mL) pen injector injection INJECT 0.5 MG UNDER THE SKIN EVERY 7 DAYS 9 mL 3 05/17/20 Active gabapentin (NEURONTIN) 100 mg capsuleIndication s:Interstitial Cystitis Take 2 capsules (200 mg total) by mouth nightly 60 capsule 1 05/20/20 25 2025 Active dicyclomine (BENTYL) 10 mg capsule TAKE 1 CAPSULE(10 MG) BY MOUTH FOUR TIMES DAILY NEEDED FOR ABDOMINAL PAIN 90 capsule 2 05/31/20 Active SUMAtriptan (IMITREX) 50 mg tablet TAKE 1 TABLET BY MOUTH NEEDED FOR MIGRAINE, MAY REPEAT 2 HOURS LATER IF PERSISTENT HEADACHE. NOT TO EXCEED 4 TABLETS PER DAY OR 9 DAYS/ MONTH 9 tablet 11 06/09/20 Active SUMAtriptan (IMITREX) 50 mg tabletIndications :Migraine Take 1 tablet (50 mg total) by mouth once as needed for migraine May repeat dose once in 2 hours if no relief. Do not exceed 2 doses in 24 hours. 2024 Discontinued Active Problems Problem Noted Date Diagnosed Date Coronary artery disease invo lving pilot point coronary artery of pilot point heart without angina pectoris 04/21/2025 Assessment & Plan (04/21/2025 3:40 PM CDT): PCI to mid LAD, diease in the prox mid LCX negative by IFR, known severe lesion in distal posterolateral branch, treating medically due to small-vessel, tortuous Denies anginal symptoms Continue DAPT Planning on starting cardiac rehab Abnormal computed tomography angiography (CTA) 0 02/10/2025 Abnormal nuclear cardiac imaging test 02/10/2025 Chronic cholecystitis 12/04/2024 Constipation 11/18/2024 Assessment & Plan (11/19/2024 8:21 AM CDT): Acute on chronic. Possible exacerbation of patient's irritable bowel syndrome but given her age more serious etiology including malignancy can not be ruled out. Further evaluation is warranted and colonoscopy has been ordered. Patient also needs relief while evaluation proceeds and given she has failed domh-nld-[id number] agents prescription for Linzess sent to pharmacy. Change in bowel habits 11/18/2024 Assessment & Plan (11/19/2024 8:17 AM CDT): New worsening of chronic constipation not responding to previous therapies. This may represent an exacerbation of her irritable bowel syndrome but given patient's age a change in bowel habits warrants further evaluation for malignancy. Colonoscopy ordered. Recurrent major depressive disorder, in partial remission 09/25/2023 Assessment & Plan (04/01/2024 5:30 PM CDT): Chronic, stable. Continue Lexapro with benefit. Assessment & Plan (09/25/2023 12:02 PM CDT): Chronic, controlled on sertraline but with intolerable side effects. Will switch to Lexapro. Interstitial cystitis 03/22/2023 Assessment & Plan (04/01/2024 5:30 PM CDT): Chronic. Keep upcoming appointment with Urology. We will check urinalysis to assess whether current urinary symptoms are due to UTI versus UC flare. She has seen benefit from gabapentin to UC but given intolerable side effects was advised to discuss alternatives with Urology. Assessment & Plan (03/22/2023 12:18 PM CDT): Chronic. Continue as needed naproxen and gabapentin. Continue to follow with urology. Hypokalemia 11/13/2022 Assessment & Plan (04/26/2025 2:10 PM CDT): Intermittent, recurrent. Continue potassium supplementation. Patient states she can swallow the 10 mEq tablets without issue so prescription for this dose was sent. Assessment & Plan (04/01/2024 5:30 PM CDT): Chronic, secondary to thiazide diuretic use. Continue potassium supplementation. Assessment & Plan (11/13/2022 1:35 PM CDT): In the setting of diuretic use. Follow-up BMP today. Tentatively plan to continue potassium 20 mEq daily. Urinary frequency 11/13/2022 Assessment & Plan (11/13/2022 1:36 PM CDT): Chronic. Differential diagnosis includes recurrent UTI verses overactive bladder verses pelvic floor dysfunction verses interstitial cystitis. Referral to Urology placed for further evaluation. If symptoms of UTI occur in the interim I would plan for UA before starting any antibiotics. Gastroesophageal reflux disease 11/13/2022 Assessment & Plan (04/01/2024 5:28 PM CDT): Chronic, effectively treated with omeprazole. Continue current therapy. Assessment & Plan (11/13/2022 1:36 PM CDT): Chronic, effectively treated with omeprazole. Continue current therapy. Encounter for Medicare annual wellness exam 11/2022 Assessment & Plan (04/01/2024 5:28 PM CDT): Patient here for annual Medicare wellness visit and for review of complete medical problem list. I reviewed Medicare Wellness Questionnaire. I reviewed and updated the complete problem list, medication list, family history, and immunization records with the patient. I provided preventive counseling and early detection interventions to the patient through health maintenance update and summary of today's office visit. Assessment & Plan (09/16/2022 5:42 PM PRESETTER OPERATOR): -labs today -advise q 6 month dental exam -advise annual derm check -advise annual eye exam -advise regular exercise 3-5 times a week for 30 minutes -advise annual mammogram, interverval appropriate colon cancer screening and dexa scans -advise covid vaccine and booster, advise shingles -advise obgyn -advise flu shot Statin intolerance 05/01/2022 Assessment & Plan (09/16/2022 5:39 PM PRESETTER OPERATOR): Following with cardiology, able to tolerate low dose statin, will check lipids Hypertension associated with diabetes 03/15/2022 Assessment & Plan (04/26/2025 2:10 PM CDT): Chronic, stable, controlled. Continue losartan. Assessment & Plan (04/01/2024 5:30 PM CDT): Chronic, stable, not fully controlled. Optimal blood pressure is less than 130/80. We discussed the possibility of increasing her triamterene hydrochlorothiazide but I am concerned it could cause more significant hypokalemia. Therefore will continue triamterene HCTZ with potassium unchanged and add losartan 25 mg. This has the added benefit of nephro protection in diabetes. Assessment & Plan (09/25/2023 12:09 PM CDT): Chronic, well controlled on triamterene HCTZ. Continue current therapy as well as supplemental potassium. Assessment & Plan (11/13/2022 1:35 PM CDT): Chronic, well controlled on triamterene HCTZ. Continue current therapy as well as supplemental potassium. Irritable bowel syndrome wit h both constipation and diarrhea 08/01/2021 Type 2 diabetes mellitus with chronic kidney dis ease 08/01/2021 Overview (11/19/2024 8:19 AM CDT): >>OVERVIEW FOR CONTROLLED TYPE 2 DIABETES MELLITUS WITHOUT COMPLICATION, WITHOUT LONG-TERM CURRENT USE OF INSULIN (HCC) WRITTEN ON 08/01/2021 1:11 PM BY MILE MCGILL MD A1c 6.6 on recent labs, new diagnosis Assessment & Plan (04/26/2025 2:10 PM CDT): Chronic, stable, controlled. Continue Ozempic as well as losartan. Intolerant to statin therapy. Continue aspirin. A1c today. Assessment & Plan (11/19/2024 8:20 AM CDT): Chronic, stable, controlled. Continue Ozempic as well as losartan. Intolerant to statin therapy. Pen needles for Ozempic ordered. Assessment & Plan (11/19/2024 8:19 AM CDT): >>ASSESSMENT AND PLAN FOR CONTROLLED TYPE 2 DIABETES MELLITUS WITHOUT COMPLICATION, WITHOUT LONG-TERM CURRENT USE OF INSULIN (HCC) WRITTEN ON 10/30/2021 11:57 AM BY ROMAN RUIZ NP Newly diagnosed in July Encourage low carbohydrate diet and increased physical activity Labs ordered Assessment & Plan (11/19/2024 8:19 AM CDT): >>ASSESSMENT AND PLAN FOR CONTROLLED TYPE 2 DIABETES MELLITUS WITHOUT COMPLICATION, WITHOUT LONG-TERM CURRENT USE OF INSULIN (HCC) WRITTEN ON 03/15/2022 2:17 PM BY EMILIA ROSEN MD Will check hba1c Advise annual eye exam, foot check nutrition -will recheck. Not currently on medication Assessment & Plan (11/19/2024 8:19 AM CDT): >>ASSESSMENT AND PLAN FOR CONTROLLED TYPE 2 DIABETES MELLITUS WITHOUT COMPLICATION, WITHOUT LONG-TERM CURRENT USE OF INSULIN (HCC) WRITTEN ON 11/13/2022 1:35 PM BY SJ SEYMOUR MD Chronic, effectively treated with Ozempic. Continue current therapy. Assessment & Plan (11/19/2024 8:19 AM CDT): >>ASSESSMENT AND PLAN FOR CONTROLLED TYPE 2 DIABETES MELLITUS WITHOUT COMPLICATION, WITHOUT LONG-TERM CURRENT USE OF INSULIN (HCC) WRITTEN ON 03/22/2023 12:12 PM BY SJ SEYMOUR MD Chronic, stable, effectively treated with Ozempic. Continue current therapy. A1c today. Assessment & Plan (11/19/2024 8:19 AM CDT): >>ASSESSMENT AND PLAN FOR CONTROLLED TYPE 2 DIABETES MELLITUS WITHOUT COMPLICATION, WITHOUT LONG-TERM CURRENT USE OF INSULIN (HCC) WRITTEN ON 09/25/2023 12:06 PM BY SJ SEYMOUR MD Chronic, stable, effectively treated with Ozempic. Continue current therapy. Labs today. Assessment & Plan (11/19/2024 8:19 AM CDT): >>ASSESSMENT AND PLAN FOR CONTROLLED TYPE 2 DIABETES MELLITUS WITHOUT COMPLICATION, WITHOUT LONG-TERM CURRENT USE OF INSULIN (HCC) WRITTEN ON 04/01/2024 5:28 PM BY SJ SEYMOUR MD Chronic, stable, well controlled. Labs today. Continue Ozempic. Migraine without aura and wi thout status migrainosus, not intractable 07/26/2021 Assessment & Plan (04/01/2024 5:30 PM CDT): Chronic, effectively treated with as needed sumatriptan. Continue current therapy. Assessment & Plan (11/13/2022 1:34 PM CDT): Chronic, effectively treated with as needed sumatriptan. Continue current therapy. Generalized anxiety disorder with panic attacks 04/11/2021 Assessment & Plan (04/26/2025 2:09 PM CDT): Chronic, not well controlled. Would like to resume sertraline which she thinks worked better than escitalopram. Will switch to sertraline 50 mg. Higher dose likely recommended but patient favors a low dose of SSRI. Reviewed that we can continue Xanax, and that it is ok to take twice daily when needed, but that the expectation is that a quantity of 90 pills should still last 90 days, as she should not be taking Xanax on a daily or multiple times per day basis. Discussed that if she finds her need for Xanax has increased to that point then we need to look at increasing her sertraline or adding another agent like buspirone. Assessment & Plan (11/19/2024 8:19 AM CDT): Chronic, stable, controlled. Continue Lexapro and as needed alprazolam with benefit. Assessment & Plan (04/01/2024 5:28 PM CDT): Chronic, stable, controlled. Continue Lexapro and as needed alprazolam with benefit. Assessment & Plan (09/25/2023 12:02 PM CDT): Chronic, controlled on sertraline but with intolerable side effects. Will switch to Lexapro and continue as needed alprazolam. Assessment & Plan (11/13/2022 1:34 PM CDT): Chronic, reasonably well controlled with sertraline and alprazolam. Continue current therapy. Assessment & Plan (03/15/2022 2:16 PM CDT): Takes 1/2 tab of 0.25 mg zanax prn several times a week. Will try to wean off of this and onto hydrozixine -also would like to try daily ssri. Will start zoloft -counseling advised, though pt may defer for now -RTC in 4 weeks for f/u Assessment & Plan (10/30/2021 12:00 PM CDT): On effexor xr 75 mg daily and xanax 0.25 mg PRN Was advised counseling in July and goal to taper off xanax which was last filled in Feburary Assessment & Plan (05/11/2021 12:29 PM CDT): Improving; will increase effexor to 150mg daily. Goal is to further reduce use of xanax PRN for panic attacks/sleep. Assessment & Plan (04/11/2021 11:50 AM CDT): Trial Effexor 75mg daily and titrate up slowly. Xanax 0.25mg as needed for panic attacks sent in for only short time period. Medication side effects including fall risk reviewed in detail. F/u 4-6 weeks for recheck. Cholelithiasis 09/24/2013 Overview (10/19/2016): Cholelithiasis Assessment & Plan (11/19/2024 8:18 AM CDT): Chronic. Patient encouraged to proceed with cholecystectomy as recommended. We discussed that while having some trepidation about surgery is understandable she is also impacted by ongoing symptoms associated with her gallbladder on a daily basis affecting quality of life. Continue Zofran as needed. Menopausal symptom 01/17/2012 Overview (10/19/2016): Menopausal symptoms Hyperlipidemia 01/17/2012 Overview (10/19/2016): Hyperlipidemia Assessment & Plan (04/21/2025 1:20 PM CDT): Intolerant to statins, including rosuvastatin and atorvastatin due to onset of myalgias LDL elevated, 134 per labs in September of 2024 Continue Zetia We will plan to start PCSK9i, Praulent, repeat FLP in 3 months Assessment & Plan (04/01/2024 5:29 PM CDT): Chronic, intolerant to statin therapy. Will start Zetia and recheck a lipid panel in 3 months. If lipid levels have not improved considerably then would look to add a PCSK9 inhibitor. Patient is in agreement with this plan and understands the possibility of a medication addition this winter. Assessment & Plan (11/13/2022 1:34 PM CDT): Chronic, doing well on [id number] dosing of pravastatin 10 mg. Continue current therapy. Assessment & Plan (03/15/2022 2:15 PM CDT): Will check lipids. Cannot tolerate statins Assessment & Plan (10/31/2021 7:15 AM CDT): On omega fish oil daily Has failed statins Recommend low fat, low cholesterol diet such as the mediterranean diet Recommend regular physical activity such as brisk walking at least 30 minutes 5 days per week Lipid levels ordered Continue pharmacotherapy as ordered Lipid levels will be reassessed in 4 mo Vitamin D deficiency 11/15/2010 Overview (10/19/2016): Vitamin D deficiency Assessment & Plan (04/01/2024 5:31 PM CDT): Chronic. Recheck vitamin-D level today. Family history of breast cancer 09/18/2010 Overview (10/19/2016): Family history of breast cancer in mother Assessment & Plan (03/22/2023 12:13 PM CDT): With concern for optimal screening technique. Referral to breast team placed for review of cancer risk factors and determination of recommended screening modality. Restless legs syndrome 09/18/2010 Overview (10/19/2016): RLS (restless legs syndrome) Social phobia 09/18/2010 Overview (10/19/2016): Social anxiety disorder Resolved Problems Problem Noted Date Diagnosed Date Resolved Date Encounter for medication counseling 09/25/2023 04/01/2024 Assessment & Plan (09/25/2023 12:09 PM CDT): Reviewed with patient that it is not recommended to take someone else's medication or to take a partial course of antibiotics. Reviewed that cipro in particular is not recommended for upper respiratory use. Type 2 diabetes mellitus wit h chronic kidney disease 09/11/2022 09/16/2022 Viral URI with cough 05/01/2022 023 Prediabetes 05/01/2022 11/13/2022 Assessment & Plan (09/16/2022 5:41 PM PRESETTER OPERATOR): Prediabetes with obesity. Would like to start ozempic Left ear pain 03/15/2022 11/13/2022 Impaired fasting glucose 07/26/2021 Class 1 obesity due to exces s calories with serious comorbidity and body mass index (BMI) of 30.0 to 30.9 in adult 07/26/2021 04/01/2024 Overview (07/26/2021): Detailed counseling completed today, at least 15 minutes. Including review of diet, exercise, and lifestyle goals. Assessment & Plan (11/13/2022 1:34 PM CDT): Continue healthy weight management. Assessment & Plan (10/30/2021 11:56 AM CDT): Encouraged healthy diet and exercise through low sodium, low carbohydrate diet, with exercise. Essential hypertension 07/26/202111/13 Overview (07/26/2021): Chronic, controlled. Due for labs, ordered today. Continue triamterene-HCTZ 37.5-25mg daily. Assessment & Plan (10/30/2021 11:56 AM CDT): On triamterene-hctz 37.5-25 mg daily Hypertension is improving with treatment Continue current treatment regimen Dietary sodium restriction Weight loss Regular aerobic exercise Continue current medications Blood pressure will be reassessed at the next regular appointment Anxiety 09/24/2013 11/13/2022 Overview (10/19/2016): Anxiety Assessment & Plan (02/23/2021 11:34 AM CDT): Advised to take Buspar as prescribed TID to prevent anxiety attacks from occurring. Counseling and MBR techniques reviewed in detail. Encounters Date Type Department Care Team Description 05/20/2025 Orders Only [facility] Medicine Urology [address] [facility] [address] [place] [address] Sarah Barahona NP 04/29/2025 Results Follow-Up [address] [place] [address] Sj Seymour MD Basic metabolic panel, Hemoglobin A1c, eGFR 04/26/2025 2:35 PM CDT - 04/26/2025 11:59 PM CDT Hospital Encounter [facility] [address] [place] [address] Discharge Disposition: Discharge to home or self care 04/26/2025 1:15 PM CDT Office Visit [facility] [address] [place] [address] [address] [place] [phone] Sj Seymour MD Generalized anxiety disorder with panic attacks (Primary Dx); Encounter for screening mammogram for malignant neoplasm of breast; Hypertension associated with diabetes (HCC); Type 2 diabetes mellitus with stage 2 chronic kidney disease, without long-term current use of insulin (HCC); Hypokalemia; Menopause 04/26/2025 Orders Only [facility] [address] [id number] Sj Seymour MD Hypertension associated with diabetes (HCC); Hypokalemia; Type 2 diabetes mellitus with stage 2 chronic kidney disease, without long-term current use of insulin (HCC) 04/22/2025 Telephone [facility] [address] [place] [address] 8[address] [place] [address] [place] [address] Juanito Yip MD 04/21/2025 11:45 AM CDT Office Visit [facility] [address] [facility] [address] [place] [phone] Tegan Harrington NP Coronary artery disease involving pilot point coronary artery of pilot point heart without angina pectoris (Primary Dx); S/P coronary artery stent placement; Mixed hyperlipidemia 04/21/2025 Telephone [facility] [address] [facility] [address] [place] [address] Tegan Harrington NP 04/13/2025 11:20 AM CDT Office Visit [facility] [address] [facility] [address] [place] [phone] Sarah Barahona NP IC (interstitial cystitis) (Primary Dx) 04/02/2025 Telephone [facility] [address] [place] [address] 8[address] [place] [address] [place] [address] Lavern Salas from Last 3 Months Immunizations Immunization Administration Dates Next Due Influenza, Quadrivalent, Hig h Dose, Preservative Free, Intrr 09/25/2023,03/29/2022,06/15/2021 Influenza, Quadrivalent, Spl it, Intramuscular 05/15/2011 Influenza, Quadrivalent, Spl it, Preservative Free, Intramuscular 03/24/2020,06/14/2018 Influenza, Split 05/15/2011 Influenza, Trivalent, High D ose, Split, Preservative Free, Intramuscular 04/26/2025,03/21/2020 Influenza, Trivalent, IM (MDV) 05/20/2013,2011 Influenza, Unspecified 03/29/2022,06/14/2018 Moderna SARS-CoV-2 Monovalen t Vaccination (12+ YRS) 06/16/2021,09/22/2020,08/25/2020 Moderna Sars-cov-2 Bivalent Vaccine 50 Mcg/0.5 mL (12+ YRS)-Blue/[place] 03/29/2022 Moderna Sars-cov-2 Monovalen t Booster Vaccination .25 Ml dose (12+ YRS) 06/15/2021 Pfizer SARS-CoV-2 Monovalent Vaccination (12+ Yrs) PURPLE 09/22/2020,08/25/2020 Pneumococcal Conjugate PCV 13 07/26/2021 Pneumococcal Polysaccharide PPV23 09/11/2022 Tdap 07/26/2021,09/18/2010 Surgical History Surgery Date Site/Laterality Comments OTHER SURGICAL HISTORY 07/15/2009 - 07/14/2010 fibroids removed HYSTERECTOMY 07/15/2009 - 07/14/2010 JW w/ LSO Hysterectomy w/ LSO CHOLECYSTECTOMY COLONOSCOPY CARDIAC CATHETERIZATION 03/19/2025 N/A Procedure: CORONARY FLOW VELOCITY (CFR) / FRACTIONAL FLOW VELOCITY (FFR), 1ST VESSEL (+) [id number]; Surgeon: Nas Mccabe MD; Location: [facility] CARDIAC [facility]; Service: Cardiovascular; Laterality: N/A; Medical devices from this surgery are in the Medical Devices section. CARDIAC CATHETERIZATION 03/19/2025 N/A Procedure: LEFT HEART CATHETERIZATION WITH CORONARY ANGIOGRAPHY AND WITH OR WITHOUT LEFT VENTRICULOGRAM [id number]; Surgeon: Nas Mccabe MD; Location: [facility]; Service: Cardiovascular; Laterality: N/A; Medical devices from this surgery are in the Medical Devices section. CARDIAC CATHETERIZATION 03/19/2025 N/A Procedure: Coronary Flow Velocity (CFR) / Instantaneous Flow Velocity (IFR), Ea Addtn'l Vessel; Surgeon: Nas Mccabe MD; Location: [facility] CARDIAC BENCH WORKER BINDING; Service: Cardiovascular; Laterality: N/A; Medical devices from this surgery are in the Medical Devices section. Medical History Medical History Date Comments Hypertension Anxiety GERD (gastroesophageal reflux disease) 2020 Asthma Age 62 Depression Migraines HLD (hyperlipidemia) DM (diabetes mellitus) IBS (irritable colon syndrome) Chronic cholecystitis Family History Medical History Relation Name Comments Allergies Brother Seasonal allerg ies Bipolar disorder Daughter Throat cancer Father Cancer -throat ; Cause of : Cancer -throat Lung cancer Maternal Grandfather Breast cancer Mother Cancer -breast ; Colon cancer Neg Hx Deep vein thrombosis Neg Hx Ovarian cancer Neg Hx Relation Name Status Comments Brother Daughter Father (Age 62) Maternal Grandfather Mother Alive Social History Tobacco Use Types Packs/Day Years Used Date Smoking Tobacco: Never Smokeless Tobacco: Never Tobacco Cessation:Counseling Given: Not Answered Alcohol Use Standard Drinks/Week Comments Never 0 (1 standard drink = 0.6 oz pur e alcohol) PHQ-2 Answer Date Recorded PHQ-2 Total Score (If total score is 3 or more points, staff should administer the PHQ-9) 0 04/26/2025 PHQ-9 Answer Date Recorded PHQ-9 Total Score 5 03/28/2024 AUDIT-C Answer Date Recorded Q1: How often do you have a drink containing alcohol? Never 03/19/2025 Q2: How many drinks containi ng alcohol do you have on a typical day when you are drinking? Patient does not drink Q3: How often do you have si x or more drinks on one occasion? Never 03/19/2025 Personal Safety Answer Date Recorded Have you ever been in or are you currently in a harmful physical or emotional relationship or is someone making you feel afraid or unsafe? 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 Not on file Not on file Not on file Obstetrics History Para Term AB IAB SAB Ectopic Multiple Livin g Live Births 1 1 07 15 1 Date Outcome GA Total Labor Labor/2nd/3rd Weight Sex Type Anes PTL Hilda A1 A5 Name Clin Term Last Filed Vital Signs Vital Sign Reading Time Taken Comments Blood Pressure 120/74 04/26/2025 12:26 PM CDT Pulse 67 04/26/2025 12:26 PM CDT Temperature 36.2 C (97.1 F) 04/26/2025 12:26 PM CDT Respiratory Rate 20 04/26/2025 12:26 PM CDT Oxygen Saturation 97% 04/26/2025 12:26 PM CDT Inhaled Oxygen Concentration - - Weight 73.2 kg (161 lb 6.4 oz) 04/26/2025 12:26 PM CDT Height 165.1 cm (5' 5) 04/26/2025 12:26 PM CDT Body Mass Index 26.86 04/26/2025 12:26 PM CDT Plan of Treatment Scheduled Procedures Name Priority Associated Diagnoses Date/Ti me COLONOSCOPY Open Access Constipation, unspecified constipation type Change in bowel habits Health Maintenance Due Date Last Done Comments Dilated Eye Exam 1955 Zoster Vaccine (1 of 2) 1974 Osteoporosis Screening-Bone Density Scan 09/11/2024 09/11/2022 Covid-19 Vaccine (2024-08 6 season) 2025 03/29/2022, 06/16/2021, 06/15/2021, Additional history exists Well Visit 65+ 04/01/2025 04/01/2024, 08/16, 07/26/2021, Additional history exists Breast Cancer Screening-Mammogram 04/23/2025 04/23/2024, 04/23/2023, 04/03/2013 Albumin Creatinine Ratio, Urine 10/05/2025 10/05/2024, 09/25/2023, 09/11/2022, Additional history exists Lipid Panel 10/05/2025 10/05/2024, 03/15, 09/25/2023, Additional history exists Hemoglobin A1C 10/25/2025 04/26/2025, 09/13, 04/01/2024, Additional history exists Depression Screening 04/26/2026 04/26/2025, 11/18/2024, 04/01/2024, Additional history exists Fall Risk Assessment 04/26/2026 04/26/2025, 03/19/2025, 04/01/2024, Additional history exists eGFR 04/26/2026 04/26/2025, 11/2024, 03/17/2025, Additional history exists Colon Cancer Screening-Colonoscopy 09/11/2029 09/11/2019 DTaP/Tdap/Td Vaccine (3 - Td or Tdap) 07/26/2031 07/26/2021, 09/18/2010 Colon Cancer Screening-CT Colonography Discontinued 09/11/2019 Colon Cancer Screening-DNA Stool Discontinued 09/11/19 20 Colon Cancer Screening-FIT Discontinued 09/11/2019 Colon Cancer Screening-Sigmoidoscopy Discontinued 09/11/2019 Hepatitis C Screening Completed 07/26/2021 Foot Exam Discontinued 10/30/2021 Pneumococcal vaccine 65+ Completed 09/11/2022, 07/15 Influenza Vaccine Completed 04/26/2025, , 03/29/2022, Additional history exists Hepatitis B Screening Discontinued Medical Devices Implanted Type Area House Mover Supervisor Device Identifier Shelf Expiration Date Model / Serial / Lot Medtronic Card Vasc Surgery 2.50 X 38mm David Barton Rx Coronary Stent [id number] - [id number] - [id number] Implanted:Qty : 1 on 03/19/2025 by Nas Mccabe MD at [facility] Stent N/A: Anterior Descending Cornary Artery Medtronic Card Vasc Surgery 11/10/2027 [id number] / [id number] / [id number] Procedures Procedure Name Priority Date/Time Associated Diagnosis Comments EGFR Routine 04/26/2025 1:05 PM CDT Hypertension associated with diabetes (HCC) Hypokalemia HEMOGLOBIN A1C Routine 04/26/2025 1:05 PM CDT Type 2 diabetes mellitus with stage 2 chronic kidney disease, without long-term current use of insulin (HCC) BASIC METABOLIC PANEL Routine 04/26/2025 1:05 PM CDT Hypertension associated with diabetes (HCC) Hypokalemia POCT URINALYSIS DIPSTICK Routine 04/13/2025 11:20 AM CDT IC (interstitial cystitis) LIPID PANEL Routine 10/05/2024 1:46 PM CDT Mixed hyperlipidemia Statin intolerance ALBUMIN CREATININE RATIO, URINE Routine 10/05/2024 1:46 PM CDT Controlled type 2 diabetes mellitus without complication, without long-term current use of insulin (HCC) SCREENING MAMMOGRAM BILATERAL W DREW Schedule Routine, Read Routine (OP Routine) 04/23/2024 12:19 PM CDT Encounter for screening mammogram for malignant neoplasm of breast DEXA AXIAL SKELETON BONE DENSITY 1 OR MORE SITES Schedule Routine, Read Routine (OP Routine) 09/11/2022 1:18 PM PRESETTER OPERATOR Preventative health care Localized osteoporosis (Raman) HEPATITIS C ANTIBODY Routine 07/26/2021 12:54 PM PRESETTER OPERATOR Medicare annual wellness visit, subsequent Class 1 obesity due to excess calories with serious comorbidity and body mass index (BMI) of 31.0 to 31.9 in adult COLONOSCOPY Routine 09/11/2019 from Last 3 Months or Most Recently Relevant to Health Maintenance Results * eGFR (04/26/2025 1:05 PM CDT) eGFR 67 >=60 mL/min/1. 73 m2 Comment: Interpretive Data Reference Interval Normal >/= 90 mL/min/1.73m2 Mildly decreased* 60 - 89 mL/min/1.73m2 Mildly to moderately decreased 45 - 59 mL/min/1.73m2 Moderately to severely decreased 30 - 44 mL/min/1.73m2 Severely decreased 15 - 29 mL/min/1.73m2 Kidney Failure < 15 mL/min/1.73m2 *Relative to young adult level Estimated glomerular filtration rate is determined by the 2020 CKD-EPI equation recommended by the National Kidney Foundation (A Unifying Approach to GFR Estimation: Recommendations of the NKF-ASK Task Force on Reassessing the Inclusion of Race in Diagnosing Kidney Disease, JASN 2020). The CKD-EPI equation should not be used for patients with unstable renal function and has not been validated in children and those over 70. Current interpretive data was last reviewed 2021. Blood 04/26/2025 1:05 PM CDT 04/26/2025 6:31 PM CDT Sj Seymour MD LAB BLOOD ORDERABLES Final Re sult Performing Organization Address [facility] Co de Phone Number [facility] [place] [address] * Hemoglobin A1c (04/26/2025 1:05 PM CDT) Hgb A1C 5.3 4.0 - 5.6 % Estimated Average Glucose 105 mg/dL [facility] Comment: The ADA recommends reporting an estimated Average Glucose (eAG) with all Hemoglobin A1c results using the equation derived from a study of 507 normal and diabetic adults. Minority populations were underrepresented and children were not included. (Diabetes Care 2020; 43(S1): S66-S76). The eAG is not equivalent to a fasting glucose. Blood 04/26/2025 1:05 PM CDT 04/26/2025 6:20 PM CDT Sj Seymour MD LAB BLOOD ORDERABLES Final Re sult Performing Organization Address [facility] Co de Phone Number [facility] [place] [address] * Basic metabolic panel (04/26/2025 1:05 PM CDT) Sodium 141 135 - 145 mmol/L Potassium, pl 3.5 3.3 - 4.9 mmol/L [facility] Chloride 99 97 - 110 mmol/L [facility] CO2 28 22 - 32 mmol/L [facility] Anion gap 14 2 - 15 mmol/L [facility] BUN 12 6 - 25 mg/dL [facility] Creatinine 0.93 0.60 - 1.10 mg/dL [facility] Glucose 73 70 - 199 mg/dL [facility] Comment: Interpretive Data Fasting glucose >/= 126 mg/dl is diagnostic for diabetes. Fasting is defined as no caloric intake for at least 8 hours. Fasting glucose between 100 mg/dl to 125 mg/dl is diagnostic of prediabetes. In a patient with classic symptoms of hyperglycemia or hyperglycemic crisis, a random glucose >/= 200 mg/dl is diagnostic for diabetes. In the absence of unequivocal hyperglycemia, results should be confirmed by repeat testing. The classification and Diagnosis of Diabetes Diabetes Care 2021; 46: S19-S40. Current interpretive data was last revised 2022. Calcium 9.4 8.5 - 10.3 mg/dL [facility] Blood 04/26/2025 1:05 PM CDT 04/26/2025 6:20 PM CDT us Sj Seymour MD LAB BLOOD ORDERABLES Final Re sult [facility] [place] [address] * POCT urinalysis dipstick (04/13/2025 11:20 AM CDT) Color, Urine, POC Yellow Clarity, ur, POC Clear Clear Glucose, ur, POC Negative Negative Ketones, ur, POC Negative Negative Blood, ur, POC Negative Negative pH, ur, POC 5.0 5.0 - 8.0 Protein, ur, POC Negative Negative Nitrite, ur, POC Negative Negative Leukocytes, ur, POC Negative Negative Lot Number x Urine 04/13/2025 11:2 0 AM CDT us Sarah Barahona NP POINT OF CARE TEST ORDER LYNDSAY Final Result * Albumin Creatinine Ratio, Urine (10/05/2024 1:46 PM CDT) Albumin Ur <12.0 mg/L Comment: Interpretive Data No reference range established. Current interpretive data was last revised 2018. Creatinine Ur 95.4 mg/dL [facility] Comment: Interpretive Data No reference range established. Current interpretive data was last revised 2018. Albumin Creatinine Ratio, Ur <13 1 - 29 mg/g [facility] Urine 10/05/2024 1:46 PM CDT 10/05/2024 2:32 PM CDT us Nickolas Pino PATIENT CARE REPRESENTATIVE LAB URINE ORDERABLES Final Re sult [facility] [place] [address] * (ABNORMAL) Lipid panel (10/05/2024 1:46 PM CDT) Cholesterol 217(H) 30 - 199 mg/dL Comment: Interpretive Data Ages < or = 19 years Acceptable: <170 mg/dL Borderline high: 170-199 mg/dL High: >or= 200 mg/dL Ages > or = 20 years Desirable: <200 mg/dL Borderline high: 200-239 mg/dL High: >or= 240 mg/dL Literature References: 1. Expert Panel on Integrated Guidelines for Cardiovascular Health and Risk Reduction in Children and Adolescents. Pediatrics 2011;128:S213 2. NCEP Expert Panel. Circulation 2004;110:227 Current Interpretive Data was last revised on 2018. Triglycerides 250(H) <=149 mg/dL [facility] Comment: Interpretive Data Ages < or = 9 years Acceptable: <75 mg/dL Borderline high: 75-99 mg/dL High: >or= 100 mg/dL Ages 10 to 20 years Acceptable: <90 mg/dL Borderline high: 90-129 mg/dL High: >or= 130 mg/dL Ages > or = 20 years Desirable: <150 mg/dL Borderline high: 150-199 mg/dL High: 200-499 mg/dL Very high: >or= 499 mg/dL Literature References: 1. Expert Panel on Integrated Guidelines for Cardiovascular Health and Risk Reduction in Children and Adolescents. Pediatrics 2011;128:S213 2. NCEP Expert Panel. Circulation 2004;110:227 Current Interpretive Data was last revised on 2018. HDL 38(L) >=40 mg/dL [facility] Comment: Interpretive Data Ages < or = 19 years Acceptable: >45 mg/dL Borderline low: 40-45 mg/dL Low: <40 mg/dL Ages > or = 20 years Desirable: >or= 60 mg/dL Low: <40 mg/dL Literature References: 1. Expert Panel on Integrated Guidelines for Cardiovascular Health and Risk Reduction in Children and Adolescents. Pediatrics 2011;128:S213 2. NCEP Expert Panel. Circulation 2004;110:227 Current Interpretive Data was last revised on 2018. LDL, calculated 134(H) <=129 mg/dL [facility] Comment: Interpretive Data Ages < or = 19 years Acceptable: <110 mg/dL Borderline high: 110-129 mg/dL High: >or= 130 mg/dL Ages > or = 20 years Optimal: <100 mg/dL Near optimal: 100-129 mg/dL Borderline high: 130-159 mg/dL High: >160 mg/dL Calculated using the Clayton LDL-C estimating equation. This equation was implemented on 2024. Prior to this date LDL-C was estimated using the Friedewald equation. Literature References: 1. Expert Panel on Integrated Guidelines for Cardiovascular Health and Risk Reduction in Children and Adolescents. Pediatrics 2011;128:S213 2. NCEP Expert Panel. Circulation 2004;110:227 3. Clayton Jauregui et al. HIRAM Cardiol. 2020 November 12;5(5):540-548. doi: 10.1001/[email or web address].2020.0013 Current Interpretive Data was last revised on 2024. Non-HDL Cholesterol 179 mg/dL [facility] Comment: Interpretive Data Ages < or = 19 years Acceptable: <120 mg/dL Borderline high: 120-144 mg/dL High: >145 mg/dL Ages > or = 20 years When triglycerides are >200 mg/dL, Non-HDL cholesterol is a secondary target of therapy with treatment goals that are 30 mg/dL greater than the LDL cholesterol target. Literature References: 1. Expert Panel on Integrated Guidelines for Cardiovascular Health and Risk Reduction in Children and Adolescents. Pediatrics 2011;128:S213 2. NCEP Expert Panel. Circulation 2004;110:227 Current Interpretive Data was last revised on 2018. Chol/HDL ratio 6 [facility] Blood 10/05/2024 1:46 PM CDT 10/05/2024 2:32 PM CDT us Nickolas Pino PATIENT CARE REPRESENTATIVE LAB BLOOD ORDERABLES Final Re sult [facility] [place] [address] * Screening Mammogram Bilateral W Drew (04/23/2024 12:19 PM CDT) Anatomical Region Laterality Modality Breast Bilateral Mammography Narrative 04/24/2024 2:55 PM CDT Mammogram Technique: Bilateral Digital Breast Tomosynthesis, Bilateral C-view 2D Screening mammogram. Views obtained: bilateral craniocaudal and bilateral mediolateral oblique. Computer Aided Detection was performed. Mammogram Findings: The present examination has been compared to prior imaging studies performed at [facility] on 08/02/2011, 04/03/2013 and 04/23/2023. The breasts are heterogeneously dense, which may obscure small masses. There is no suspicious abnormality in either breast. Impression: There is no mammographic evidence of malignancy. Annual screening mammography is recommended. If supplemental screening is desired, breast MRI would be recommended in this patient with heterogeneously dense breasts. OVERALL FINAL ASSESSMENT: BI-RADS CATEGORY 1: Negative. Procedure Note Gabriela Mayers MD - 04/24/2024 Mammogram Technique: Bilateral Digital Breast Tomosynthesis, Bilateral C-view 2D Screening mammogram. Views obtained: bilateral craniocaudal and bilateral mediolateral oblique. Computer Aided Detection was performed. Mammogram Findings: The present examination has been compared to prior imaging studies performed at [facility] on 08/02/2011, 04/03/2013 and 04/23/2023. The breasts are heterogeneously dense, which may obscure small masses. There is no suspicious abnormality in either breast. Impression: There is no mammographic evidence of malignancy. Annual screening mammography is recommended. If supplemental screeningis desired, breast MRI would be recommended in this patient with heterogeneously dense breasts. OVERALL FINAL ASSESSMENT: BI-RADS CATEGORY 1: Negative. Sj Seymour MD [facility] MAMMO PROCEDURES Final Re sult * Dexa Axial Skeleton Bone Density 1 or 2 Site (09/11/2022 1:18 PM PRESETTER OPERATOR) Anatomical Region Laterality Modality Body N/A Digital Radiogra phy 09/11/2022 1:32 PM PRESETTER OPERATOR Impressions 09/11/2022 1:48 PM PRESETTER OPERATOR 1. The bone mineral density of the lumbar spine is normal. 2. The bone mineral density of the left femoral neck is normal. 3. The bone mineral density of the left total hip is normal. 4. Overall, the above findings are normal by WHO criteria. 5. Calculation of fracture risk using the FRAX model is not appropriate in certain settings. It was not performed in this patient because the patient met the following condition(s): normal bone density. General comments regarding interpretation of bone density measurements: A) In children, premenopausal woman and males under age 50 not at increased risk for fractures only Z-scores, not T-scores are used to indicate risk. A Z-score above -2.0 is defined as within the expected range for age and Z-score at or less than -2.0 is below the expected range for age. A Z-score below the expected range for age in a patient with recent fractures and/or chronic corticosteroid treatment is consistent with a diagnosis of osteoporosis. B) In post menopausal women and males over 50, comparison of the measured bone mineral density with the average value in young normal subjects (the T-score) has been found to be useful in assessing fracture risk. Fracture risk approximately doubles for each 1.0 standard deviation (SD) in individual's hip or spine bone mineral density is below the average value of young normal subjects. The World Health Organization (WHO) has defined T-scores of -1.0 to -2.5 as diagnostic of low bone mass (OSTEOPENIA), and T-scores of -2.5 or lower to be diagnostic of OSTEOPOROSIS, based on the site of lowest bone density. Note that there will be a change in reporting format and reference databases as patients move from the younger population (group A) to the older population (group B) The National Osteoporosis Foundation (www.nof.org) recommends adequate intake of calcium and vitamin D and regular weight-bearing exercise in all patients. They recommend pharmacologic treatment in postmenopausal women and men age 50 and older presenting with any of the followin) Osteoporosis, after appropriate evaluation to exclude secondary causes. 2) A hip or vertebral (clinical or radiographic) fracture, regardless of the bone density. 3) Low bone mass (Osteopenia) and one or more of: other prior fractures, secondary causes associated with high risk of fracture (such as glucocorticoid use or total immobilization), or computed high risk of fracture (10-yr probability of hip fracture >= 3% or a 10-yr probability of any major osteoporosis-related fracture >= 20% based on the [place].-adapted WHO algorithm), available at http://www.shef.ac.uk/FRAX). Dictated by: Claudio Madrigal M.D. The radiology attending physician has personally reviewed this study, and had reviewed and/or edited this written report and agrees with it. Electronically signed by: Bisi Ayala M.D. Narrative 09/11/2022 1:48 PM PRESETTER OPERATOR BONE DENSITOMETRY OF THE SPINE AND HIP DATE OF STUDY: 09/11/2022 HISTORY: 67-year-old postmenopausal woman with hysterectomy and salpingo-oophorectomy at age 57. She fractured her humerus during a simple fall at age 65. She is being treated with vitamin D supplementation. Evaluate bone mineral density. Additional risk factors for fracture: None. FINDINGS (SPINE): The bone mineral density of L1-L4 was assessed by dual-energy x-ray absorptiometry. The average bone mineral density within this region is 0.956 gm/sq-cm. This is 1.1 standard deviations above the mean of the average bone mineral density for age- and gender-matched subjects (the Z-score). It is 0.8 standard deviations below the mean peak bone mineral density in young adults (the T-score). FINDINGS (FEMORAL NECK): The bone mineral density of the left femoral neck was assessed by dual-energy x-ray absorptiometry. The average bone mineral density within the femoral neck region is 0.752 gm/sq-cm. This is 0.8 standard deviations above the mean of the average bone mineral density for age- and gender-matched subjects (the Z-score). It is 0.9 standard deviations below the mean peak bone mineral density in young adults (the T-score). FINDINGS (TOTAL HIP): The bone mineral density of the left hip was assessed by dual-energy x-ray absorptiometry. The average bone mineral density within the total hip region is 0.911 gm/sq-cm. This is 1.1 standard deviations above the mean of the average bone mineral density for age- and gender-matched subjects (the Z-score). It is 0.3 standard deviations below the mean peak bone mineral density in young adults (the T-score). SUMMARY OF CURRENT RESULTS: Region BMD T-score Z-score AP Spine (L1-L4) 0.956 -0.8 1.1 Femoral Neck (Left) 0.752 -0.9 0.8 Total Hip (Left) 0.911 -0.3 1.1 Procedure Note Bisi Ayala MD - 09/11/2022 BONE DENSITOMETRY OF THE SPINE AND HIP DATE OF STUDY: 09/11/2022 HISTORY: 67-year-old postmenopausal woman with hysterectomy and salpingo-oophorectomy at age 57. She fractured her humerus during a simple fall at age 65. She is being treated with vitamin D supplementation. Evaluate bone mineral density. Additional risk factors for fracture: None. FINDINGS (SPINE): The bone mineral density of L1-L4 was assessed by dual-energy x-ray absorptiometry. The average bone mineral density within this region is 0.956 gm/sq-cm. This is 1.1 standard deviations above the mean of the average bone mineral density for age- and gender-matched subjects (the Z-score). It is 0.8 standard deviations below the mean peak bone mineral density in young adults (the T-score). FINDINGS (FEMORAL NECK): The bone mineral density of the left femoral neck was assessed by dual-energy x-ray absorptiometry. The average bone mineral density within the femoral neck region is 0.752 gm/sq-cm. This is 0.8 standard deviations above the mean of the average bone mineral density for age- and gender-matched subjects (the Z-score). It is 0.9 standard deviations below the mean peak bone mineral density in young adults (the T-score). FINDINGS (TOTAL HIP): The bone mineral density of the left hip was assessed by dual-energy x-ray absorptiometry. The average bone mineral density within the total hip region is 0.911 gm/sq-cm. This is 1.1 standard deviations above the mean of the average bone mineral density for age- and gender-matched subjects (the Z-score). It is 0.3 standard deviations below the mean peak bone mineral density in young adults (the T-score). SUMMARY OF CURRENT RESULTS: Region BMD T-score Z-score AP Spine (L1-L4) 0.956 -0.8 1.1 Femoral Neck (Left) 0.752 -0.9 0.8 Total Hip (Left) 0.911 -0.3 1.1 IMPRESSION: 1. The bone mineral density of the lumbar spine is normal. 2. The bone mineral density of the left femoral neck is normal. 3. The bone mineral density of the left total hip is normal. 4. Overall, the above findings are normal by WHO criteria. 5. Calculation of fracture risk using the FRAX model is not appropriate in certain settings. It was not performed in this patient because the patient met the following condition(s): normal bone density. General comments regarding interpretation of bone density measurements: A) In children, premenopausal woman and males under age 50 not at increased risk for fractures only Z-scores, not T-scores are used to indicate risk. A Z-score above -2.0 is defined as within the expected range for age and Z-score at or less than -2.0 is below the expected range for age. A Z-score below the expected range for age in a patient with recent fractures and/or chronic corticosteroid treatment is consistent with a diagnosis of osteoporosis. B) In post menopausal women and males over 50, comparison of the measured bone mineral density with the average value in young normal subjects (the T-score) has been found to be useful in assessing fracture risk. Fracture risk approximately doubles for each 1.0 standard deviation (SD) in individual's hip or spine bone mineral density is below the average value of young normal subjects. The World Health Organization (WHO) has defined T-scores of -1.0 to -2.5 as diagnostic of low bone mass (OSTEOPENIA), and T-scores of -2.5 or lower to be diagnostic of OSTEOPOROSIS, based on the site of lowest bone density. Note that there will be a change in reporting format and reference databases as patients move from the younger population (group A) to the older population (group B) The National Osteoporosis Foundation (www.nof.org) recommends adequate intake of calcium and vitamin D and regular weight-bearing exercise in all patients. They recommend pharmacologic treatment in postmenopausal women and men age 50 and older presenting with any of the followin) Osteoporosis, after appropriate evaluation to exclude secondary causes. 2) A hip or vertebral (clinical or radiographic) fracture, regardless of the bone density. 3) Low bone mass (Osteopenia) and one or more of: other prior fractures, secondary causes associated with high risk of fracture (such as glucocorticoid use or total immobilization), or computed high risk of fracture (10-yr probability of hip fracture >= 3% or a 10-yr probability of any major osteoporosis-related fracture >= 20% based on the [place].-adapted WHO algorithm), available at http://www.shef.ac.uk/FRAX). Dictated by: Claudio Madrigal M.D. The radiology attending physician has personally reviewed this study, and had reviewed and/or edited this written report and agrees with it. Electronically signed by: Bisi Ayala M.D. Emilia Rosen MD IMG DXA PROCEDURES Final Result * Hepatitis C antibody (07/26/2021 12:54 PM PRESETTER OPERATOR) Hep C Ab Nonreactive Nonreactive [facility] Comment:Antibodies to HCV no t detected. Does NOT exclude the possibility of recent exposure to HCV. Blood 07/26/2021 12:5 4 PM PRESETTER OPERATOR 07/26/2021 4:47 PM PRESETTER OPERATOR Mile Mcgill MD LAB MICROBIOLOGY - GENERAL ORDERABLES Edited Result - Final [facility] Department [place] [address] * Colonoscopy (09/11/2019) Anatomical Region Laterality Modality Other Historical Provider ENDOSCOPY PROCEDURES Barb l Result from Last 3 Months or Most Recently Relevant to Health Maintenance Insurance [facility] MEDICARE [place] [place] [address] [place] [address] MEDICARE IDPA Advance Directives For more information, please contact: [phone] * Full Code (Latest Code Status on File) Date Activated Date Inactivated Comments 03/19/2025 8:35 AM 03/19/2025 7:24 PM * Full Code Date Activated Date Inactivated Comments 12/18/2024 4:39 PM 12/19/2024 5:56 PM Care Teams Cryptographic Vulnerability Analyst Relationship Specialty Start Date End Date Sj Seymour MD PCP - General Sleep Medicine 11/13/22 Taye Burns MD [address] [address] Consulting Physician General Surgery 12/18/24
--- OUTSIDE RECORDS SUMMARY | 2025-07-02 14:08 | XMS_ITS | Clinical Summary ---
Author Organization [facility] Address [address] [facility] [address] [place] [address] Phone Care Team Providers Care Grand Scribe Name Role Phone Deni Loco DO Unavailable Saman Domínguez DO Primary Care Provider [phone] Medications famotidine (PEPCID) 20 MG Tablet Take 1 Tablet by mouth daily. 90 Tablet 3 12/27/2020 Active Immunizations Immunization Administration Dates Next Due Covid-19, Mrna, Lnp-s, PF, 1 00 mcg/0.5 mL Dose (Moderna) 09/22/2020,08/25/2020 Social History Tobacco Use Types Packs/Day Years Used Date Smoking Tobacco: Never Assessed Comments Unknown Sex and Gender Information Value Date Recorded Sex Assigned at Not on file Legal Sex Female 8:56 PM CDT Gender Identity Not on file Sexual Orientation Not on file Plan of Treatment Health Maintenance Due Date Last Done Comments Hepatitis C Virus (HCV) Screening 1955 TdaP Immunization 1955 Cologuard 2000 Immunochemical Fecal Occult Blood 2000 Pneumococcal Immunization (5 0+ years) (1 of 1 - PCV) 2005 Zoster Immunization (1 of 2) 2005 Medicare Initial AWV [id number] 05/15/2021 Influenza Immunization (#1) 03/15/202503/15, 06/14/2018 SARS-COV-2 Immunization (4 - 2025-26 season) 2025 06/15/2021, 09/22/2020, 08/25/2020 Respiratory Syncytial Virus (RSV) Immunization (Adult) (1 - 1-dose 75+ series) 2030 Colonoscopy 11/16/2030 11/16/2020, 08/08/2015 Colorectal Cancer Screening 11/16/2030 Hepatitis B Immunization Aged Out No longer eligible based on patient's age to complete this topic Human Papillomavirus (HPV) Immunization (No Doses Required) Completed Meningococcal Immunization (ACWY) Aged Out No longer eligible b ased on patient's age to complete this topic Rotavirus Immunization Aged Out No lo nger eligible based on patient's age to complete this topic Procedures Procedure Name Priority Date/Time Associated Diagnosis Comments COLONOSCOPY Routine 11/16/2020 from Last 3 Months or Most Recently Relevant to Health Maintenance Results * COLONOSCOPY (11/16/2020) Deni Loco DO PROCEDURE/MINOR SURGICAL ORDERA BLES Final Result from Last 3 Months or Most Recently Relevant to Health Maintenance Insurance MEDICAID [place] MEDICARE Care Teams Grand Scribe Relationship Specialty Start Date End Date Saman Domínguez DO [address] [facility] [address] [place] [address] PCP - General Internal Medicine 11/01/20 Deni Loco DO Gastroenterology 08/08/15
--- OUTSIDE RECORDS SUMMARY | 2025-07-02 14:08 | XMS_ITS | Clinical Summary ---
Author Organization [email or web address] Address [address] [place] [address] Care Team Providers Care Behavioral Modification Assistant Name Role Phone Roberta Seymour MD Primary Care Provider [phone] Source Comments [email or web address],non-owned Affiliates and Associated Physician Practices is amultiple site organization consisting of ambulatory clinics and hospital sitesin [place], [place], [place] and [place]. This disclosure is being madepursuant to the Care Everywhere program and may not contain all information available regarding this patient. Last updated 18.[email or web address] Allergies Active Allergy Reactions Criticality Noted Date Comments Atorvastatin Myalgias Medium 05/01/2022 Hydroxyzine Dizziness Low 05/01/2022 Rosuvastatin Myalgias Medium 05/01/2022 Medications * Be aware that medications may not be up to date on this document. Alwaysverify current medications with the patient. dicyclomine (Bentyl) 10 MG capsule Take 1 (one) capsule by mouth once daily 2 Active triamterene-hy droCHLOROthiaz petar (Dyazide) 37.5-25 MG capsule Take 1 (one) capsule by mouth once daily 2 Active omeprazole (PriLOSEC) 40 MG capsule Take 1 (one) capsule by mouth once daily 2 Active ALPRAZolam (Xanax) 0.25 MG tablet Take 1 (one) tablet by mouth once daily 2 Active sertraline (Zoloft) 50 MG tablet Take 1 (one) tablet by mouth once daily 2 Active oxybutynin (Ditropan) 5 MG tablet Take 1 (one) tablet by mouth 3 times daily Active Springer-3 Fatty Acids (fish oil) 1000 MG capsule Take 1 (one) capsule by mouth once daily Active naproxen (Naprosyn) 500 MG tablet Take 1 (one) tablet by mouth 2 times daily 1 Active Multiple Vitamin (Multi-Vitamin s) TABS Take 1 (one) tablet by mouth once daily Active benzonatate (Tessalon) 100 MG capsule Take 1 (one) capsule by mouth 3 times daily as needed 2 Active potassium chloride ER (Klor-Con) 10 MEQ tablet Take 1 (one) tablet by mouth once daily 2 Active pravastatin (Pravachol) 10 MG tablet Take 1 (one) tablet by mouth once daily 2 Active SUMAtriptan (Imitrex) 50 MG tablet Take 1 (one) tablet by mouth as needed 2 Active Ozempic, 0.25 or 0.5 MG/DOSE, 2 MG/1.5ML pen Inject 0.25 (one-quarter) mg subcutaneously as directed 3 Active hydrOXYzine HCl (Atarax) 25 MG tablet Take 1 (one) tablet by mouth once daily 2 Active venlafaxine XR 24hr (Effexor XR) 75 MG capsule Take 1 (one) capsule by mouth as directed 2 Active amoxicillin-cl avulanate (Augmentin) 875-125 MG tablet TAKE 1 TABLET BY MOUTH TWICE DAILY WITH THE MORNING AND EVENING MEAL 20 tablet 4 Active fluticasone propionate (Flonase) 50 MCG/ACT nasal spray SHAKE LIQUID AND USE 2 SPRAYS IN EACH NOSTRIL EVERY DAY 48 g 3 5 Active Active Problems No known active problems Immunizations Immunization Administration Dates Next Due INFLUENZA VACCINE, TRIV. (AF LURIA, FLUZONE TRIVALENT; 6MO+) (IIV3) 05/20/2013,03/27/2012 Covid Moderna primary monovalent 12+ yr 0.5mL INFLUENZA VACCINE 09/25/2023 INFLUENZA VACCINE, HIGH-DOSE , QUADR. (FLUZONE HIGH-DOSE QUADRIVALENT; 65Y+), 0.7 ML (HD-IIV4) 03/29/2022,06/15/2021 INFLUENZA VACCINE, QUADR. (A FLURIA, FLUZONE QUADRIVALENT; 6MO+) (IIV4) 05/15/2011 INFLUENZA VACCINE, QUADR. (F LUZONE; FLULAVAL; FLUARIX; AFLURIA QUADRIVALENT; 6MO+), 0.5 ML (IIV4) 03/24/2020,06/14/2018 MODERNA SARS-COV-2 COVID-19 VACCINE 0.25ML 06/15 PNEUMOCOCCAL PPSV23 09/11/2022 Pneumococcal Pcv13 Conj 07/26/2021 TDAP (7yrs+) 09/18/2010 TDAP, HISTORIC VACCINE 07/26/2021 Social History Tobacco Use Types Packs/Day Years Used Date Smoking Tobacco: Never Smokeless Tobacco: Never Tobacco Cessation:Counseling Given: Not Answered Alcohol Use Standard Drinks/Week Comments Never 0 (1 standard drink = 0.6 oz pur e alcohol) Comments Unknown Sex and Gender Information Value Date Recorded Sex Assigned at Not on file Legal Sex Female 6:19 AM ERP DEVELOPER Gender Identity Not on file Sexual Orientation Not on file Last Filed Vital Signs Vital Sign Reading Time Taken Comments Blood Pressure 130/77 11/02/2022 1:38 PM CDT Pulse 71 11/02/2022 1:38 PM CDT Temperature 36.2 C (97.2 F) 11/02/2022 1:38 PM CDT Respiratory Rate - - Oxygen Saturation - - Inhaled Oxygen Concentration - - Weight 72.1 kg (159 lb) 02/14/2024 1:43 PM CDT Height 165.1 cm (5' 5) 02/14/2024 1:43 PM CDT Body Mass Index 26.46 02/14/2024 1:43 PM CDT Plan of Treatment Health Maintenance Due Date Last Done Comments COLOGUARD (AGES 45-75) - COLON CA SCREENING 1955 CT COLONOGRAPHY - COLON CA SCREENING 1955 FIT - COLON CA SCREENING 1955 FLEX SIG - COLON CA SCREENING 1955 MEDICARE AWV 12 MONTHS 1955 HEPATITIS C SCREENING 05/21/1973 ZOSTER VACCINE (1 of 2) 2005 SCREENING FOR DIABETES 02/14/2024 DEPRESSION SCREENING 07/15/2024 COVID-19 VACCINE ( season) 2025 03/29/2022, 06/16/2021, 06/15/2021, Additional history exists INFLUENZA VACCINE (#1) 2025 , 03/29/2022, 06/15/2021, Additional history exists MAMMOGRAM 04/23/2025 04/23/2023, 04/14, 04/03/2013 COLON MONITORING 09/11/2029 09/11/2019 COLONOSCOPY - COLON CA SCREENING 09/11/2029 09/11/2019 Colorectal Cancer Screening 09/11/2029 Respiratory Syncytial Virus (RSV) Vaccine Pt: or over 60 yrs (1 - 1-dose 75+ series) 2030 DTAP/TDAP/TD VACCINES (3 - Td or Tdap) 07/26/2031 07/26/2021, 09/18/2010 BONE DENSITY TESTING Completed 09/11/2022 PNEUMOCOCCAL VACCINE 50+ Completed 09/11/2022, 07/15 HEPATITIS B VACCINE Aged Out No longe r eligible based on patient's age to complete this topic HIB VACCINE Aged Out No longer eligi ble based on patient's age to complete this topic HPV VACCINE Aged Out No longer eligi ble based on patient's age to complete this topic MENINGOCOCCAL (Group B) VACCINE SHARED DECISION-MAKING Aged Out No longer eligible based on patient's age to complete this topic MENINGOCOCCAL GROUPS A/C/Y/W VACCINE Aged Out No longer eligible based on patient's age to complete [place] [address] MEDICAID [place] [address] MEDICARE MEDICAID - [place] Care Teams Behavioral Modification Assistant Relationship Specialty Start Date End Date Roberta eSymour MD [address] [address] PCP - General Internal Medicine 02/14/24
== END 2025-07-02 14:04 | disposition home or self-care (01) ==
LOC: ANHFOHIMG 14:05
DX: Z12.31 Encounter for screening mammogram for malignant neoplasm of breast (principal)
CPT/HCPCS: 77063; 77067